=== PATIENT | female | born 1995 | race Caucasian/White ===

== ENCOUNTER 2017-11-24 10:24 | Emergency (ER) | payer MEDICAID ==
[~2017-11-24] VITALS: Ht 160 cm; Wt 90.7 kg
[~2017-11-24 10:24] MED LIST: ACHD5005 PO; AGM875T PO; BENZ100C8 PO; CIPR500T4 PO; DCS100C PO; FLC150T PO; FRS325T PO; HYDR-3454 PO; HYDR-3720 PO; HYDR-757 PO; IBP600T1 PO; METR500T PO; METR500T21 PO; NITR100C3 PO; ONDA4TAB11; ONDA8TAB13 PO; PREN-115 PO
--- OUTSIDE RECORDS SUMMARY | 2017-11-24 10:31 | XMS REPORT ---
Author JN Garcia [facility] eClinicalWorks Address Unknown Phone Unavailable Care Team Providers Care Compliance Clerk Name Role Phone JN ARCHER CP Unavailable Allergies No Known Allergies Problems Problem Type Condition Code Onset Dates Condition Status Problem Routine general medical examination at health care facility V70.0 Active Problem Allergy, unspecified not elsewhere classified 995.3 Active Problem examination or test, positive result V72.42 Active Problem Supervision of normal first V22.0 Active Problem Acute serous otitis media 381.01 Active Problem Cough 786.2 Active Problem Candidiasis of vulva and vagina 112.1 Active Problem Unspecified urticaria 708.9 Active Problem Nausea alone 787.02 Active Problem General counseling for initiation of other contraceptive measures V25.02 Active Problem Absence of menstruation 626.0 Active Problem Acute sinusitis, unspecified 461.9 Active Problem Routine follow-up V24.2 Active Problem Unspecified antepartum hemorrhage, unspecified as to episode of care 641.90 Active Problem Leukorrhea, not specified as infective 623.5 Active Problem Personal history of other allergy, other than to medicinal agents V15.09 Active Problem Unspecified acute conjunctivitis 372.00 Active Problem Pain in joint, lower leg 719.46 Active Problem Encounter for long-term (current) use of other medications V58.69 Active Problem Unspecified procreative management V26.9 Active Problem Unspecified examination V72.9 Active Assessment Encounter for test Z32.00 Active Problem Screening examination for venereal disease V74.5 Active Problem Mild hyperemesis gravidarum, antepartum 643.03 Active Medications No Known Medications Procedures Procedure Coding System Code Date URINE TEST CPT-4 41958 Nov 10, 2015 Results Name Result Date Reference Range Unit Abnormality Flag TEST, URINE (IN HOUSE) ----RESULTS neg [id number] ----Lot # [id number] ----Control + [id number] ----Exp date [id number] Summary Purpose eClinicalWorks Submission
--- OUTSIDE RECORDS SUMMARY | 2017-11-24 10:31 | XMS REPORT ---
Author KRISSY Flynn [facility] eClinicalWorks Address Unknown Phone Unavailable Care Team Providers Care Winding Machine Operator Name Role Phone KRISSY JANSEN CP Unavailable Allergies, Adverse Reactions, Alerts Substance Reaction Event Type N.K.D.A. Info Not Available Non Drug Allergy Problems Problem Type Condition Code Onset Dates [...] Active Problem Unspecified examination V72.9 Active Assessment Migraine G43.909 Active Problem Screening examination for venereal disease V74.5 Active Problem Mild hyperemesis gravidarum, antepartum 643.03 Active Medications Medication Code System Code Instructions Start Date End Date Status Dosage Propranolol HCl [facility] [address]-22 10 MG Orally Twice a day Nov 30, 2015 1 tablet Nexplanon [facility] [address]-16 68 MG Subcutaneous not defined Procedures Procedure Coding System Code Date COMPREHEN METABOLIC PANEL CPT-4 00735 Nov 30, 2015 COMPLETE CBC W/AUTO DIFF WBC CPT-4 92520 Nov 30, 2015 ASSAY THYROID STIM HORMONE CPT-4 97339 Nov 30, 2015 Office Visit, Est Pt., Level 4 CPT-4 69118 Nov 30, 2015 VENIPUNCT, ROUTINE* CPT-4 15696 Nov 30, 2015 Vital Signs Date/Time: Nov 30, 2015 Temperature 98.3 F Weight 206.5 lbs Height 62 in BMI 37.77 Index Blood Pressure Diastolic 82 mmHg Blood Pressure Systolic 134 mmHg Cardiac Monitoring Heart Rate 78 bpm Results Name Result Date Reference Range Unit Abnormality Flag ROUTINE VENIPUNCTURE Summary Purpose eClinicalWorks Submission
--- OUTSIDE RECORDS SUMMARY | 2017-11-24 10:31 | XMS REPORT ---
Author Author BRISEIDA MARLOW [facility] eClinicalWorks Address Unknown Phone Unavailable Care Team Providers Care Boilermaker'S Assistant Name Role Phone BRISEIDA MARLOW CP Unavailable Allergies, Adverse Reactions, Alerts Substance Reaction Event Type N.K.D.A. Info Not Available Non Drug Allergy Problems Problem Type Condition Code Onset Dates Condition Status Assessment Environmental allergies Z91.09 Active Problem Unspecified examination V72.9 Active Assessment Fibrocystic breast disease N60.19 Active Problem Mild hyperemesis gravidarum, antepartum 643.03 Active Assessment Headache R51 Active Problem Routine general medical examination at health care facility V70.0 Active Problem Allergy, unspecified not elsewhere classified 995.3 Active Problem examination or test, positive result V72.42 Active Problem Supervision of normal first V22.0 Active Problem Cough 786.2 Active Problem Acute serous otitis media 381.01 Active Problem Candidiasis of vulva and vagina 112.1 Active Problem Nausea alone 787.02 Active Problem Unspecified urticaria 708.9 Active Problem General counseling for initiation of [...] Problem Unspecified procreative management V26.9 Active Problem Screening examination for venereal disease V74.5 Active Medications Medication Code System Code Instructions Start Date End Date Status Dosage Zyrtec Allergy [facility] [address]-71 10 MG Orally Once a day Nov 16, 2015 as directed Fioricet [facility] [address]-66 50-300-40 MG Orally every 4 hrs Nov 16, 2015 1 capsule as needed Procedures Procedure Coding System Code Date Office Visit, Est Pt., Level 3 CPT-4 14359 Nov 16, 2015 Vital Signs Date/Time: Nov 16, 2015 Temperature 98.7 F Weight 201 lbs Height 62 in BMI 36.76 Index Blood Pressure Diastolic 70 mmHg Blood Pressure Systolic 120 mmHg Cardiac Monitoring Heart Rate 68 bpm Results No Known Results Summary Purpose eClinicalWorks Submission
--- OUTSIDE RECORDS SUMMARY | 2017-11-24 10:32 | XMS REPORT | Continuity of Care Document ---
Author Author Formerly [facility], 1928–1983 Ctr of [facility] of [facility] Address Unknown Phone Unavailable Allergies Active Description Code Type Severity Reaction Onset Reported/Identified Relationship to Patient Clinical Status Yes No Known Drug Allergies [id number] Drug Allergy Unknown N/A 05/09/2013 Medications There is no data. Problems Date Dx Coded Attending Type Code Diagnosis Diagnosed By 03/12/2009 ASMITA MERCADO MD V25.9 Gynecologic Services Contraceptive Management 03/12/2009 ASMITA MERCADO MD V72.31 Pelvic Exam (Internal) 03/12/2009 V25.9 Gynecologic Services Contraceptive Management 03/12/2009 V72.31 Pelvic Exam ( Internal) 03/12/2009 V25.9 Gynecologic Services Contraceptive Management 03/12/2009 V72.31 Pelvic Exam ( internal) 03/12/2009 V25.9 Gynecologic Services Contraceptive Management 03/12/2009 V72.31 Pelvic Exam ( internal) 03/12/2009 V25.9 Gynecologic Services Contraceptive Management 03/12/2009 V72.31 Pelvic Exam ( internal) 03/12/2009 V25.9 Gynecologic Services Contraceptive Management 03/12/2009 V72.31 Pelvic Exam ( internal) 03/12/2009 V25.9 Gynecologic Services Contraceptive Management 03/12/2009 V72.31 Pelvic Exam ( internal) 03/12/2009 V25.9 Gynecologic Services Contraceptive Management 03/12/2009 V72.31 Pelvic Exam ( internal) 03/12/2009 V25.9 Gynecologic Services Contraceptive Management 03/12/2009 V72.31 Pelvic Exam ( internal) 03/12/2009 ELLA MONGE APRN V25.9 Gynecologic Services Contraceptive Management 03/12/2009 ELLA MONGE APRN V72.31 Pelvic Exam (internal) 03/12/2009 KENRICK DESAI MD V25.9 Gynecologic Services Contraceptive Management 03/12/2009 KENRICK DESAI MD V72.31 Pelvic Exam (internal) 03/12/2009 JYOTI KNIFE EDGER, BRENDEN A V25.9 Gynecologic Services Contraceptive Management 03/12/2009 JYOTI KNIFE EDGER, BRENDEN A V72.31 Pelvic Exam (internal) 03/12/2009 JUSTYNA KNIFE EDGER, KRISSY L V25.9 Gynecologic Services Contraceptive Management 03/12/2009 JUSTYNA KNIFE EDGER, KRISSY L V72.31 Pelvic Exam (internal) 03/12/2009 BARRAGAN DO LEONEL K V25.9 Gynecologic Services Contraceptive Management 03/12/2009 BARRAGAN DO, LEONEL K V72.31 Pelvic Exam (internal) 03/12/2009 MARCIN KNIFE EDGER, MICHA R V25.9 Gynecologic Services Contraceptive Management 03/12/2009 MARCIN KNIFE EDGER, MICHA R V72.31 Pelvic Exam (internal) 03/12/2009 BARRAGAN DO LEONEL K V25.9 Gynecologic Services Contraceptive Management 03/12/2009 BARRAGAN DO, LEONEL K V72.31 Pelvic Exam (internal) 05/28/2009 ASMITA MERCADO MD V05.8 GARDASIL, SHINGLES, OTHER SPECIFIED DISEASE 05/28/2009 ASMITA MERCADO MD V25.49 SURVEILLANCE OF OTHER CONTRACEPTIVE METHOD 05/28/2009 V05.8 GARDASIL, SHINGLES, OTHER SPECIFIED DISEASE 05/28/2009 V25.49 SURVEILLANCE OF OTHER CONTRACEPTIVE METHOD 05/28/2009 V05.8 Gardasil, Shingles, Other Specified Disease 05/28/2009 V25.49 Surveillance Of Other Contraceptive Method 05/28/2009 V05.8 Gardasil, Shingles, Other Specified Disease 05/28/2009 V25.49 Surveillance Of Other Contraceptive Method 05/28/2009 V05.8 Gardasil, Shingles, Other Specified Disease 05/28/2009 V25.49 Surveillance Of Other Contraceptive Method 05/28/2009 V05.8 Gardasil, Shingles, Other Specified Disease 05/28/2009 V25.49 Surveillance Of Other Contraceptive Method 05/28/2009 V05.8 Gardasil, Shingles, Other Specified Disease 05/28/2009 V25.49 Surveillance Of Other Contraceptive Method 05/28/2009 V05.8 Gardasil, Shingles, Other Specified Disease 05/28/2009 V25.49 Surveillance Of Other Contraceptive Method 05/28/2009 V05.8 Gardasil, Shingles, Other Specified Disease 05/28/2009 V25.49 Surveillance Of Other Contraceptive Method 05/28/2009 MARIPOSA KNIFE EDGERKERENA S V05.8 Gardasil, Shingles, Other Specified Disease 05/28/2009 KEREN MONGE APRNA S V25.49 Surveillance Of Other Contraceptive Method 05/28/2009 KENRICK DESAI MD V05.8 Gardasil, Shingles, Other Specified Disease 05/28/2009 KENRICK DESAI MD V25.49 Surveillance Of Other Contraceptive Method 05/28/2009 JYOTI KNIFE EDGER, BRENDEN A V05.8 Gardasil, Shingles, Other Specified Disease 05/28/2009 JYOTI KNIFE EDGERIVANBRENDEN A V25.49 Surveillance Of Other Contraceptive Method 05/28/2009 MADL KNIFE EDGER KRISSY L V05.8 Gardasil, Shingles, Other Specified Disease 05/28/2009 MADL KNIFE EDGER, KRISSY L V25.49 Surveillance Of Other Contraceptive Method 05/28/2009 LAUREL DO LEONEL K V05.8 Gardasil, Shingles, Other Specified Disease 05/28/2009 BARRAGAN DO LEONEL K V25.49 Surveillance Of Other Contraceptive Method 05/28/2009 MARCIN KNIFE EDGER, MICHA R V05.8 Gardasil, Shingles, Other Specified Disease 05/28/2009 MARCIN MENDEZ MICHA R V25.49 Surveillance Of Other Contraceptive Method 05/28/2009 BARRAGAN DO LEONEL K V05.8 Gardasil, Shingles, Other Specified Disease 05/28/2009 LAUREL SOMERS LEONEL K V25.49 Surveillance Of Other Contraceptive Method 11/17/2009 ASMITA MERCADO MD V05.3 HEPATITIS VIRAL/ALL 11/17/2009 ASMITA MERCADO MD V05.4 VARICELLA, CHICKENPOX 11/17/2009 ASMITA MERCADO MD V06.5 DT, TETANUS-DIPHTHERIA [Td] ,TDAP 11/17/2009 V05.3 HEPATITIS VIRAL/ALL 11/17/2009 V05.4 VARICELLA, CHICKENPOX 11/17/2009 V06.5 DT, TETANUS- DIPHTHERIA [Td] ,TDAP 11/17/2009 V05.3 Hepatitis Viral/all 11/17/2009 V05.4 Varicella, Chickenpox 11/17/2009 V06.5 Dt, Tetanus- diphtheria [td] ,tdap 11/17/2009 V05.3 Hepatitis Viral/all 11/17/2009 V05.4 Varicella, Chickenpox 11/17/2009 V06.5 Dt, Tetanus- diphtheria [td] ,tdap 11/17/2009 V05.3 Hepatitis Viral/all 11/17/2009 V05.4 Varicella, Chickenpox 11/17/2009 V06.5 Dt, Tetanus- diphtheria [td] ,tdap 11/17/2009 V05.3 Hepatitis Viral/all 11/17/2009 V05.4 Varicella, Chickenpox 11/17/2009 V06.5 Dt, Tetanus- diphtheria [td] ,tdap 11/17/2009 V05.3 Hepatitis Viral/all 11/17/2009 V05.4 Varicella, Chickenpox 11/17/2009 V06.5 Dt, Tetanus- diphtheria [td] ,tdap 11/17/2009 V05.3 Hepatitis Viral/all 11/17/2009 V05.4 Varicella, Chickenpox 11/17/2009 V06.5 Dt, Tetanus- diphtheria [td] ,tdap 11/17/2009 V05.3 Hepatitis Viral/all 11/17/2009 V05.4 Varicella, Chickenpox 11/17/2009 V06.5 Dt, Tetanus- diphtheria [td] ,tdap 11/17/2009 MARIPOSA KNIFE EDGER, ELLA S V05.3 Hepatitis Viral/all 11/17/2009 MARIPOSA KNIFE EDGER, ELLA S V05.4 Varicella, Chickenpox 11/17/2009 MARIPOSA KNIFE EDGER, ELLA S V06.5 Dt, Tetanus-diphtheria [td] ,tdap 11/17/2009 GISELLE RICH, KENRICK Michel V05.3 Hepatitis Viral/all 11/17/2009 GISELLE RICH, KENRICK Michel V05.4 Varicella, Chickenpox 11/17/2009 GISELLE RICH, KENRICK Michel V06.5 Dt, Tetanus-diphtheria [td] ,tdap 11/17/2009 JYOTI KNIFE EDGER, BRENDEN A V05.3 Hepatitis Viral/all 11/17/2009 JYOTI KNIFE EDGER, BRENDEN A V05.4 Varicella, Chickenpox 11/17/2009 JYOTI KNIFE EDGER, BRENDEN A V06.5 Dt, Tetanus-diphtheria [td] ,tdap 11/17/2009 MADL KNIFE EDGER, KRISSY L V05.3 Hepatitis Viral/all 11/17/2009 MADL KNIFE EDGER, KRISSY L V05.4 Varicella, Chickenpox 11/17/2009 MADL KNIFE EDGER, KRISSY L V06.5 Dt, Tetanus-diphtheria [td] ,tdap 11/17/2009 BARRAGAN DO, LEONEL K V05.3 Hepatitis Viral/all 11/17/2009 BARRAGAN DO, LEONEL K V05.4 Varicella, Chickenpox 11/17/2009 BARRAGAN DO, LEONEL K V06.5 Dt, Tetanus-diphtheria [td] ,tdap 11/17/2009 MARCIN KNIFE EDGER, MICHA R V05.3 Hepatitis Viral/all 11/17/2009 MARCIN KNIFE EDGER, MICHA R V05.4 Varicella, Chickenpox 11/17/2009 MARCIN KNIFE EDGER, MICHA R V06.5 Dt, Tetanus-diphtheria [td] ,tdap 11/17/2009 BARRAGAN DO, LEONEL K V05.3 Hepatitis Viral/all 11/17/2009 BARRAGAN DO, LEONEL K V05.4 Varicella, Chickenpox 11/17/2009 BARRAGAN DO, LEONEL K V06.5 Dt, Tetanus-diphtheria [td] ,tdap 01/13/2010 JESS RICH, ASMITA 698.1 PRURITUS VULVAE 01/13/2010 698.1 PRURITUS VULVAE 01/13/2010 698.1 Pruritus Vulvae 01/13/2010 698.1 Pruritus Vulvae 01/13/2010 698.1 Pruritus Vulvae 01/13/2010 698.1 Pruritus Vulvae 01/13/2010 698.1 Pruritus Vulvae 01/13/2010 698.1 Pruritus Vulvae 01/13/2010 698.1 Pruritus Vulvae 01/13/2010 MARIPOSA MENDEZ, ELLA Crawford 698.1 Pruritus Vulvae 01/13/2010 GISELLE RICH, KENRICK Michel 698.1 Pruritus Vulvae 01/13/2010 JYOTIBRENDEN SIFUENTES APRN A 698.1 Pruritus Vulvae 01/13/2010 KRISSY JANSEN APRN 698.1 Pruritus Vulvae 01/13/2010 LEONEL BARRAGAN DO 698.1 Pruritus Vulvae 01/13/2010 MICHA BURCH APRN 698.1 Pruritus Vulvae 01/13/2010 LEONEL BARRAGAN DO 698.1 Pruritus Vulvae 02/23/2010 ASMITA MERCADO MD 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 02/23/2010 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 02/23/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/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/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/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/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/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/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/2010 ELLA MONGE APRN 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/2010 KENRICK DESAI MD 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/2010 BRENDEN MONTES APRN A 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/2010 KRISSY JANSEN APRN 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/2010 LEONEL BARRAGAN DO 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/2010 MICHA BURCH APRN R 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/2010 LEONEL BARRAGAN DO 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 02/17/2011 ASMITA MERCADO MD V20.2 WELL CHILD 02/17/2011 V20.2 WELL CHILD 02/17/2011 V20.2 WELL CHILD 02/17/2011 V20.2 WELL CHILD 02/17/2011 V20.2 WELL CHILD 02/17/2011 V20.2 WELL CHILD 02/17/2011 V20.2 WELL CHILD 02/17/2011 V20.2 WELL CHILD 02/17/2011 V20.2 WELL CHILD 02/17/2011 ELLA MONGE APRN V20.2 WELL CHILD 02/17/2011 KENRICK DESAI MD V20.2 WELL CHILD 02/17/2011 JYOTI APRNBRENDEN A V20.2 WELL CHILD 02/17/2011 JUSTYNA VANESSAKRISSY L V20.2 WELL CHILD 02/17/2011 LEONEL BARRAGAN DO K V20.2 WELL CHILD 02/17/2011 MARCIN MENDEZMICHA R V20.2 WELL CHILD 02/17/2011 LEONEL BARRAGAN DO K V20.2 WELL CHILD 03/16/2011 ASMITA MERCADO MD 625.3 severe menstrual pain (dysmenorrhea) 03/16/2011 ASMITA MERCADO MD V25.02 Gynecologic Services Prescription Of Contraceptive Agents 03/16/2011 625.3 severe menstrual pain (dysmenorrhea) 03/16/2011 V25.02 Gynecologic Services Prescription Of Contraceptive Agents 03/16/2011 625.3 severe menstrual pain (dysmenorrhea) 03/16/2011 V25.02 Gynecologic Services Prescription Of Contraceptive Agents 03/16/2011 625.3 severe menstrual pain (dysmenorrhea) 03/16/2011 V25.02 Gynecologic Services Prescription Of Contraceptive Agents 03/16/2011 625.3 severe menstrual pain (dysmenorrhea) 03/16/2011 V25.02 Gynecologic Services Prescription Of Contraceptive Agents 03/16/2011 625.3 SEVERE MENSTRUAL PAIN (DYSMENORRHEA) 03/16/2011 V25.02 Gynecologic Services Prescription Of Contraceptive Agents 03/16/2011 625.3 SEVERE MENSTRUAL PAIN (DYSMENORRHEA) 03/16/2011 V25.02 Gynecologic Services Prescription Of Contraceptive Agents 03/16/2011 625.3 SEVERE MENSTRUAL PAIN (DYSMENORRHEA) 03/16/2011 V25.02 Gynecologic Services Prescription Of Contraceptive Agents 03/16/2011 625.3 SEVERE MENSTRUAL PAIN (DYSMENORRHEA) 03/16/2011 V25.02 Gynecologic Services Prescription Of Contraceptive Agents 03/16/2011 ELLA MONGE APRN 625.3 SEVERE MENSTRUAL PAIN (DYSMENORRHEA) 03/16/2011 ELLA MONGE APRN V25.02 Gynecologic Services Prescription Of Contraceptive Agents 03/16/2011 KENRICK DESAI MD 625.3 SEVERE MENSTRUAL PAIN (DYSMENORRHEA) 03/16/2011 KENRICK DESAI MD V25.02 Gynecologic Services Prescription Of Contraceptive Agents 03/16/2011 JYOTIBRENDEN Michel APRN A 625.3 SEVERE MENSTRUAL PAIN (DYSMENORRHEA) 03/16/2011 JYOTIBRENDEN Michel APRN A V25.02 Gynecologic Services Prescription Of Contraceptive Agents 03/16/2011 JUSTYNA KRISSY MENDEZ L 625.3 SEVERE MENSTRUAL PAIN (DYSMENORRHEA) 03/16/2011 PEDROLillian KRISSY MENDEZ L V25.02 Gynecologic Services Prescription Of Contraceptive Agents 03/16/2011 JANEY BARRAGAN DOA K 625.3 SEVERE MENSTRUAL PAIN (DYSMENORRHEA) 03/16/2011 JANEY BARRAGAN DOA K V25.02 Gynecologic Services Prescription Of Contraceptive Agents 03/16/2011 VALENCIA BURCH APRNINA R 625.3 SEVERE MENSTRUAL PAIN (DYSMENORRHEA) 03/16/2011 VALENCIA BURCH APRNINA R V25.02 Gynecologic Services Prescription Of Contraceptive Agents 03/16/2011 JANEY BARRAGAN DOA K 625.3 SEVERE MENSTRUAL PAIN (DYSMENORRHEA) 03/16/2011 JANEY BARRAGAN DOA K V25.02 Gynecologic Services Prescription Of Contraceptive Agents 06/05/2011 ASMITA MERCADO MD 477.0 ALLERGIC RHINITIS - POLLEN 06/05/2011 477.0 ALLERGIC RHINITIS - POLLEN 06/05/2011 477.0 ALLERGIC RHINITIS - POLLEN 06/05/2011 477.0 ALLERGIC RHINITIS - POLLEN 06/05/2011 477.0 ALLERGIC RHINITIS - POLLEN 06/05/2011 477.0 ALLERGIC RHINITIS - POLLEN 06/05/2011 477.0 ALLERGIC RHINITIS - POLLEN 06/05/2011 477.0 ALLERGIC RHINITIS - POLLEN 06/05/2011 477.0 ALLERGIC RHINITIS - POLLEN 06/05/2011 ELLA MONGE APRN 477.0 ALLERGIC RHINITIS - POLLEN 06/05/2011 KENRICK DESAI MD 477.0 ALLERGIC RHINITIS - POLLEN 06/05/2011 BRENDEN MONTES APRN A 477.0 ALLERGIC RHINITIS - POLLEN 06/05/2011 KRISSY JANSEN APRN 477.0 ALLERGIC RHINITIS - POLLEN 06/05/2011 JANEY BARRAGAN DOA K 477.0 ALLERGIC RHINITIS - POLLEN 06/05/2011 VALENCIA BURCH APRNINA R 477.0 ALLERGIC RHINITIS - POLLEN 06/05/2011 BARRAGAN LEONEL SOMERS K 477.0 ALLERGIC RHINITIS - POLLEN 06/17/2012 ASMITA MERCADO MD 626.0 ABSENCE OF MENSTRUATION 06/17/2012 626.0 ABSENCE OF MENSTRUATION 06/17/2012 626.0 Absence Of Menstruation 06/17/2012 626.0 Absence Of Menstruation 06/17/2012 626.0 Absence Of Menstruation 06/17/2012 626.0 Absence Of Menstruation 06/17/2012 626.0 Absence Of Menstruation 06/17/2012 626.0 Absence Of Menstruation 06/17/2012 626.0 Absence Of Menstruation 06/17/2012 ELLA MONGE APRN S 626.0 Absence Of Menstruation 06/17/2012 KENRICK DESAI MD 626.0 Absence Of Menstruation 06/17/2012 BRENDEN MONTES APRN A 626.0 Absence Of Menstruation 06/17/2012 KRISSY JANSEN APRN L 626.0 Absence Of Menstruation 06/17/2012 BARRAGAN DOLEONEL K 626.0 Absence Of Menstruation 06/17/2012 MICHA BURCH APRN R 626.0 Absence Of Menstruation 06/17/2012 BARRAGAN DO, LEONEL K 626.0 Absence Of Menstruation 07/18/2012 ASMITA MERCADO MD 995.3 ALLERGY UNSPECIFIED NOT ELSEWHERE CLASSIFIED 07/18/2012 995.3 ALLERGY UNSPECIFIED NOT ELSEWHERE CLASSIFIED 07/18/2012 995.3 Allergy Unspecified Not Elsewhere Classified 07/18/2012 995.3 Allergy Unspecified Not Elsewhere Classified 07/18/2012 995.3 Allergy Unspecified Not Elsewhere Classified 07/18/2012 995.3 Allergy Unspecified Not Elsewhere Classified 07/18/2012 995.3 Allergy Unspecified Not Elsewhere Classified 07/18/2012 995.3 Allergy Unspecified Not Elsewhere Classified 07/18/2012 995.3 Allergy Unspecified Not Elsewhere Classified 07/18/2012 ELLA MONGE APRN S 995.3 Allergy Unspecified Not Elsewhere Classified 07/18/2012 KENRICK DESAI MD 995.3 Allergy Unspecified Not Elsewhere Classified 07/18/2012 BRENDEN MONTES APRN A 995.3 Allergy Unspecified Not Elsewhere Classified 07/18/2012 SHAYAN JANSEN APRNA L 995.3 Allergy Unspecified Not Elsewhere Classified 07/18/2012 BARRAGAN LEONEL SOMERS 995.3 Allergy Unspecified Not Elsewhere Classified 07/18/2012 MICHA BURCH APRN 995.3 Allergy Unspecified Not Elsewhere Classified 07/18/2012 BARRAGAN LEONEL SOMERS 995.3 Allergy Unspecified Not Elsewhere Classified 08/07/2012 ASMITA MERCADO MD 372.00 ACUTE CONJUNCTIVITIS UNSPECIFIED 08/07/2012 ASMITA MERCADO MD 381.01 ACUTE SEROUS OTITIS MEDIA 08/07/2012 ASMITA MERCADO MD V15.09 PERSONAL HISTORY OF OTHER ALLERGY OTHER THAN TO MEDICINAL AGENTS 08/07/2012 372.00 ACUTE CONJUNCTIVITIS UNSPECIFIED 08/07/2012 381.01 ACUTE SEROUS OTITIS MEDIA 08/07/2012 V15.09 PERSONAL HISTORY OF OTHER ALLERGY OTHER THAN TO MEDICINAL AGENTS 08/07/2012 372.00 Acute Conjunctivitis Unspecified 08/07/2012 381.01 Acute Serous Otitis Media 08/07/2012 V15.09 Personal History Of Other Allergy Other Than To Medicinal Agents 08/07/2012 372.00 Acute Conjunctivitis Unspecified 08/07/2012 381.01 Acute Serous Otitis Media 08/07/2012 V15.09 Personal History Of Other Allergy Other Than To Medicinal Agents 08/07/2012 372.00 Acute Conjunctivitis Unspecified 08/07/2012 381.01 Acute Serous Otitis Media 08/07/2012 V15.09 Personal History Of Other Allergy Other Than To Medicinal Agents 08/07/2012 372.00 Acute Conjunctivitis Unspecified 08/07/2012 381.01 Acute Serous Otitis Media 08/07/2012 V15.09 Personal History Of Other Allergy Other Than To Medicinal Agents 08/07/2012 372.00 Acute Conjunctivitis Unspecified 08/07/2012 381.01 Acute Serous Otitis Media 08/07/2012 V15.09 Personal History Of Other Allergy Other Than To Medicinal Agents 08/07/2012 372.00 Acute Conjunctivitis Unspecified 08/07/2012 381.01 Acute Serous Otitis Media 08/07/2012 V15.09 Personal History Of Other Allergy Other Than To Medicinal Agents 08/07/2012 372.00 Acute Conjunctivitis Unspecified 08/07/2012 381.01 Acute Serous Otitis Media 08/07/2012 V15.09 Personal History Of Other Allergy Other Than To Medicinal Agents 08/07/2012 MARIPOSA KNIFE EDGER, ELLA S 372.00 Acute Conjunctivitis Unspecified 08/07/2012 MARIPOSA KNIFE EDGER, ELLA S 381.01 Acute Serous Otitis Media 08/07/2012 MARIPOSA MENDEZ, ELLA S V15.09 Personal History Of Other Allergy Other Than To Medicinal Agents 08/07/2012 KENRICK DESAI MD N 372.00 Acute Conjunctivitis Unspecified 08/07/2012 KENRICK DESAI MD N 381.01 Acute Serous Otitis Media 08/07/2012 KENRICK DESAI MD N V15.09 Personal History Of Other Allergy Other Than To Medicinal Agents 08/07/2012 JYOTI KNIFE EDGER, BRENDEN A 372.00 Acute Conjunctivitis Unspecified 08/07/2012 JYOTI KNIFE EDGER, BRENDEN A 381.01 Acute Serous Otitis Media 08/07/2012 JYOTI KNIFE EDGER, BRENDEN A V15.09 Personal History Of Other Allergy Other Than To Medicinal Agents 08/07/2012 MADL KNIFE EDGER, KRISSY L 372.00 Acute Conjunctivitis Unspecified 08/07/2012 MADL KNIFE EDGER, KRISSY L 381.01 Acute Serous Otitis Media 08/07/2012 MADL KNIFE EDGER, KRISSY L V15.09 Personal History Of Other Allergy Other Than To Medicinal Agents 08/07/2012 BARRAGAN DO, LEONEL K 372.00 Acute Conjunctivitis Unspecified 08/07/2012 BARRAGAN DO, LEONEL K 381.01 Acute Serous Otitis Media 08/07/2012 BARRAGAN DO, LEONEL K V15.09 Personal History Of Other Allergy Other Than To Medicinal Agents 08/07/2012 MARCIN KNIFE EDGER, MICHA R 372.00 Acute Conjunctivitis Unspecified 08/07/2012 MARCIN KNIFE EDGER, MICHA R 381.01 Acute Serous Otitis Media 08/07/2012 MARCIN KNIFE EDGER, MICHA R V15.09 Personal History Of Other Allergy Other Than To Medicinal Agents 08/07/2012 BARRAGAN DO, LEONEL K 372.00 Acute Conjunctivitis Unspecified 08/07/2012 BARRAGAN DO, LEONEL K 381.01 Acute Serous Otitis Media 08/07/2012 BARRAGAN DO LEONEL K V15.09 Personal History Of Other Allergy Other Than To Medicinal Agents 11/14/2012 ASMITA MERCADO MD 461.9 SINUSITIS ACUTE 11/14/2012 ASMITA MERCADO MD 786.2 COUGH 11/14/2012 461.9 SINUSITIS ACUTE 11/14/2012 786.2 COUGH 11/14/2012 461.9 Sinusitis Acute 11/14/2012 786.2 Cough 11/14/2012 461.9 Sinusitis Acute 11/14/2012 786.2 Cough 11/14/2012 461.9 Sinusitis Acute 11/14/2012 786.2 Cough 11/14/2012 461.9 Sinusitis Acute 11/14/2012 786.2 Cough 11/14/2012 461.9 Sinusitis Acute 11/14/2012 786.2 Cough 11/14/2012 461.9 Sinusitis Acute 11/14/2012 786.2 Cough 11/14/2012 461.9 Sinusitis Acute 11/14/2012 786.2 Cough 11/14/2012 ELLA MONGE APRN S 461.9 Sinusitis Acute 11/14/2012 MARIPOSA MENDEZ ELLA S 786.2 Cough 11/14/2012 KENRICK DESAI MD 461.9 Sinusitis Acute 11/14/2012 KENRICK DESAI MD N 786.2 Cough 11/14/2012 JYOTI KNIFE EDGER, BRENDEN A 461.9 Sinusitis Acute 11/14/2012 JYOTI APRN, BRENDEN A 786.2 Cough 11/14/2012 MADL VANESSA, KRISSY L 461.9 Sinusitis Acute 11/14/2012 MADL KNIFE EDGER, KRISSY L 786.2 Cough 11/14/2012 JANEY BARRAGAN DOA K 461.9 Sinusitis Acute 11/14/2012 JANEY BARRAGAN DOA K 786.2 Cough 11/14/2012 MARCIN VANESSA, MICHA R 461.9 Sinusitis Acute 11/14/2012 MARCIN KNIFE EDGER, MICHA R 786.2 Cough 11/14/2012 BARRAGAN DO LEONEL K 461.9 Sinusitis Acute 11/14/2012 BARRAGAN DO LEONEL K 786.2 Cough 01/27/2013 719.46 joint pain in both knees 01/27/2013 719.46 joint pain in both knees 01/27/2013 719.46 joint pain in both knees 01/27/2013 719.46 joint pain in both knees 01/27/2013 719.46 joint pain in both knees 01/27/2013 719.46 joint pain in both knees 01/27/2013 719.46 joint pain in both knees 01/27/2013 719.46 joint pain in both knees 01/27/2013 ELLA MONGE APRN 719.46 joint pain in both knees 01/27/2013 KENRICK DESAI MD 719.46 joint pain in both knees 01/27/2013 BRENDEN MONTES APRN A 719.46 joint pain in both knees 01/27/2013 KRISSY JANSEN APRN L 719.46 joint pain in both knees 01/27/2013 BARRAGAN DO, LEONEL K 719.46 joint pain in both knees 01/27/2013 MICHA BURCH APRN R 719.46 joint pain in both knees 01/27/2013 BARRAGAN DO, LEONEL K 719.46 joint pain in both knees 02/11/2013 787.02 NAUSEA ALONE 02/11/2013 V22.0 , NORMAL FIRST 02/11/2013 787.02 Nausea Alone 02/11/2013 V22.0 , NORMAL FIRST 02/11/2013 787.02 Nausea Alone 02/11/2013 V22.0 , NORMAL FIRST 02/11/2013 787.02 Nausea Alone 02/11/2013 V22.0 , NORMAL FIRST 02/11/2013 787.02 Nausea Alone 02/11/2013 V22.0 , NORMAL FIRST 02/11/2013 787.02 Nausea Alone 02/11/2013 V22.0 , NORMAL FIRST 02/11/2013 787.02 Nausea Alone 02/11/2013 V22.0 , NORMAL FIRST 02/11/2013 787.02 Nausea Alone 02/11/2013 V22.0 , NORMAL FIRST 02/11/2013 ELLA MONGE APRN S 787.02 Nausea Alone 02/11/2013 ELLA MONGE APRN V22.0 , NORMAL FIRST 02/11/2013 KENRICK DESAI MD N 787.02 Nausea Alone 02/11/2013 KENRICK DESAI MD V22.0 , NORMAL FIRST 02/11/2013 BRENDEN MONTES APRN A 787.02 Nausea Alone 02/11/2013 JYOTI KNIFE EDGER, BRENDEN A V22.0 , NORMAL FIRST 02/11/2013 MADL KNIFE EDGER, KRISSY L 787.02 Nausea Alone 02/11/2013 MADL KNIFE EDGER, KRISSY L V22.0 , NORMAL FIRST 02/11/2013 BARRAGAN DO, LEONEL K 787.02 Nausea Alone 02/11/2013 BARRAGAN DO, LEONEL K V22.0 , NORMAL FIRST 02/11/2013 MARCIN KNIFE EDGER, MICHA R 787.02 Nausea Alone 02/11/2013 MARCIN KNIFE EDGER, MICHA R V22.0 , NORMAL FIRST 02/11/2013 BARRAGAN DO, LEONEL K 787.02 Nausea Alone 02/11/2013 BARRAGAN DO, LEONEL K V22.0 , NORMAL FIRST 02/22/2013 643.03 COMPL OF PREGNACY - HYPEREMESIS <23 WK 02/22/2013 V70.0 ROUTINE GENERAL MEDICAL EXAMINATION AT A HEALTH CARE FACILITY 02/22/2013 643.03 COMPL OF PREGNACY - HYPEREMESIS <23 WK 02/22/2013 V70.0 ROUTINE GENERAL MEDICAL EXAMINATION AT A HEALTH CARE FACILITY 02/22/2013 643.03 COMPL OF PREGNACY - HYPEREMESIS <23 WK 02/22/2013 V70.0 ROUTINE GENERAL MEDICAL EXAMINATION AT A HEALTH CARE FACILITY 02/22/2013 643.03 COMPL OF PREGNACY - HYPEREMESIS <23 WK 02/22/2013 V70.0 ROUTINE GENERAL MEDICAL EXAMINATION AT A HEALTH CARE FACILITY 02/22/2013 643.03 COMPL OF PREGNACY - HYPEREMESIS <23 WK 02/22/2013 V70.0 ROUTINE GENERAL MEDICAL EXAMINATION AT A HEALTH CARE FACILITY 02/22/2013 643.03 COMPL OF PREGNACY - HYPEREMESIS <23 WK 02/22/2013 V70.0 ROUTINE GENERAL MEDICAL EXAMINATION AT A HEALTH CARE FACILITY 02/22/2013 643.03 COMPL OF PREGNACY - HYPEREMESIS <23 WK 02/22/2013 V70.0 ROUTINE GENERAL MEDICAL EXAMINATION AT A HEALTH CARE FACILITY 02/22/2013 ELLA MONGE APRN 643.03 COMPL OF PREGNACY - HYPEREMESIS <23 WK 02/22/2013 ELLA MONGE APRN V70.0 ROUTINE GENERAL MEDICAL EXAMINATION AT A HEALTH CARE FACILITY 02/22/2013 KENRICK DESAI MD 643.03 COMPL OF PREGNACY - HYPEREMESIS <23 WK 02/22/2013 KENRICK DESAI MD N V70.0 ROUTINE GENERAL MEDICAL EXAMINATION AT A HEALTH CARE FACILITY 02/22/2013 BRENDEN MONTES APRN A 643.03 COMPL OF PREGNACY - HYPEREMESIS <23 WK 02/22/2013 BRENDEN MONTES APRN A V70.0 ROUTINE GENERAL MEDICAL EXAMINATION AT A HEALTH CARE FACILITY 02/22/2013 KRISSY JANSEN APRN L 643.03 COMPL OF PREGNACY - HYPEREMESIS <23 WK 02/22/2013 SHAYAN JANSEN APRNA L V70.0 ROUTINE GENERAL MEDICAL EXAMINATION AT A HEALTH CARE FACILITY 02/22/2013 BARRAGAN DO LEONEL K 643.03 COMPL OF PREGNACY - HYPEREMESIS <23 WK 02/22/2013 BARRAGAN DO LEONEL K V70.0 ROUTINE GENERAL MEDICAL EXAMINATION AT A HEALTH CARE FACILITY 02/22/2013 MARCIN MENDEZ MICHA R 643.03 COMPL OF PREGNACY - HYPEREMESIS <23 WK 02/22/2013 MARCIN MENDEZ MICHA R V70.0 ROUTINE GENERAL MEDICAL EXAMINATION AT A HEALTH CARE FACILITY 02/22/2013 BARRAGAN DO LEONEL K 643.03 COMPL OF PREGNACY - HYPEREMESIS <23 WK 02/22/2013 BARRAGAN DO LEONEL K V70.0 ROUTINE GENERAL MEDICAL EXAMINATION AT A HEALTH CARE FACILITY 05/07/2013 623.5 LEUKORRHEA NOT SPECIFIED INFECTIVE 05/07/2013 641.90 COMPL OF - BLEEDING 05/07/2013 623.5 LEUKORRHEA NOT SPECIFIED INFECTIVE 05/07/2013 641.90 COMPL OF - BLEEDING 05/07/2013 ELLA MONGE APRN 623.5 LEUKORRHEA NOT SPECIFIED INFECTIVE 05/07/2013 ELLA MONGE APRN 641.90 COMPL OF - BLEEDING 05/07/2013 KENRICK DESAI MD 623.5 LEUKORRHEA NOT SPECIFIED INFECTIVE 05/07/2013 KENRICK DESAI MD N 641.90 COMPL OF - BLEEDING 05/07/2013 BRENDEN MONTES APRN A 623.5 LEUKORRHEA NOT SPECIFIED INFECTIVE 05/07/2013 BRENDEN MONTES APRN 641.90 COMPL OF - BLEEDING 05/07/2013 JUSTYNA GILLISNYANAKRISSY L 623.5 LEUKORRHEA NOT SPECIFIED INFECTIVE 05/07/2013 JUSTYNA GILLISN, KRISSY L 641.90 COMPL OF - BLEEDING 05/07/2013 BARRAGAN DO, LEONEL K 623.5 LEUKORRHEA NOT SPECIFIED INFECTIVE 05/07/2013 BARRAGAN DO, LEONEL K 641.90 COMPL OF - BLEEDING 05/07/2013 MARCIN KNIFE EDGER, MICHA R 623.5 LEUKORRHEA NOT SPECIFIED INFECTIVE 05/07/2013 MARCIN KNIFE EDGER, MICHA R 641.90 COMPL OF - BLEEDING 05/07/2013 BARRAGAN DO LEONEL K 623.5 LEUKORRHEA NOT SPECIFIED INFECTIVE 05/07/2013 BARRAGAN DO LEONEL K 641.90 COMPL OF - BLEEDING 05/09/2013 MELISSA MARIE MD Ot 623.8 05/09/2013 MELISSA MARIE MD Ot 654.73 06/23/2013 MIRANDA GUAJARDO DO Ot 599.0 06/23/2013 GUAJARDO MIRANDA SOMERS Ot 625.9 06/23/2013 GUAJARDO MIRANDA SOMERS Ot 646.63 08/16/2013 MIRANDA GUAJARDO DO Ot 644.03 09/24/2013 FENECH DO, STEFANO S Ot 644.13 09/24/2013 FENECH DO, STEFANO S Ot V04.81 09/29/2013 FENECH DO, STEFANO S Ot 623.5 09/29/2013 FENECH DO, STEFANO S Ot 644.13 09/29/2013 FENECH DO, STEFANO S Ot 654.73 10/12/2013 FENECH DO, STEFANO S Ot 285.1 10/12/2013 FENECH DO, STEFANO S Ot 427.89 10/12/2013 FENECH DO, STEFANO S Ot 648.22 10/12/2013 FENECH DO, STEFANO S Ot 648.62 10/12/2013 FENECH DO, STEFANO S Ot 653.41 10/12/2013 FENECH DO, STEFANO S Ot V06.1 10/12/2013 FENECH DO, STEFANO S Ot V06.4 10/12/2013 FENECH DO, STEFANO S Ot V27.0 10/25/2013 MARIPOSA KNIFE EDGER, ELLA S V72.9 EXAMINATION, UNSPEC 10/25/2013 GISELLE RICH, KENRICK Michel V72.9 EXAMINATION, UNSPEC 10/25/2013 BRENDEN MONTES APRN A V72.9 EXAMINATION, UNSPEC 10/25/2013 KRISSY JANSEN APRN V72.9 EXAMINATION, UNSPEC 10/25/2013 BARRAGAN , LEONEL K V72.9 EXAMINATION, UNSPEC 10/25/2013 VALENCIA BURCH APRNINA R V72.9 EXAMINATION, UNSPEC 10/25/2013 BARRAGAN , LEONEL K V72.9 EXAMINATION, UNSPEC 11/28/2013 GISELLE RICH, KENRICK N V58.69 MEDICATION HIGH RISK 11/28/2013 BRENDEN MONTES APRN A V58.69 MEDICATION HIGH RISK 11/28/2013 KRISSY JANSEN APRN V58.69 MEDICATION HIGH RISK 11/28/2013 JANEY BARRAGAN DOA K V58.69 MEDICATION HIGH RISK 11/28/2013 VALENCIA BURCH APRNINA R V58.69 MEDICATION HIGH RISK 11/28/2013 JANEY BARRAGAN DOA K V58.69 MEDICATION HIGH RISK 12/17/2013 BRENDEN MONTES APRN A V24.2 F/U, ROUTINE 12/17/2013 BRENDEN MONTES APRN A V25.02 CONTRACEPTION - ANY METHOD 12/17/2013 KRISSY JANSEN APRN V24.2 F/U, ROUTINE 12/17/2013 KRISSY JANSEN APRN V25.02 CONTRACEPTION - ANY METHOD 12/17/2013 JANEY BARRAGAN DOA K V24.2 F/U, ROUTINE 12/17/2013 LAUREL SOMERS LEONEL K V25.02 CONTRACEPTION - ANY METHOD 12/17/2013 VALENCIA BURCH APRNINA R V24.2 F/U, ROUTINE 12/17/2013 VALENCIA BURCH APRNINA R V25.02 CONTRACEPTION - ANY METHOD 12/17/2013 LAUREL SOMERS LEONEL K V24.2 F/U, ROUTINE 12/17/2013 LAUREL SOMERS LEONEL K V25.02 CONTRACEPTION - ANY METHOD 04/09/2014 KRISSY JANSEN APRN 112.1 CANDIDIASIS OF VULVA AND VAGINA 04/09/2014 MADL KNIFE EDGER, KRISSY L 461.9 SINUSITIS ACUTE 04/09/2014 MADL KNIFE EDGER, KRISSY L 786.2 COUGH 04/09/2014 BARRAGAN DO, LEONEL K 112.1 CANDIDIASIS OF VULVA AND VAGINA 04/09/2014 BARRAGAN DO, LEONEL K 461.9 SINUSITIS ACUTE 04/09/2014 BARRAGAN DO, LEONEL K 786.2 COUGH 04/09/2014 MARCIN KNIFE EDGER, MICHA R 112.1 CANDIDIASIS OF VULVA AND VAGINA 04/09/2014 MARCIN KNIFE EDGER, MICHA R 461.9 SINUSITIS ACUTE 04/09/2014 MARCIN KNIFE EDGER, MICHA R 786.2 COUGH 04/09/2014 BARRAGAN DO, LEONEL K 112.1 CANDIDIASIS OF VULVA AND VAGINA 04/09/2014 BARRAGAN DO, LEONEL K 461.9 SINUSITIS ACUTE 04/09/2014 BARRAGAN DO, LEONEL K 786.2 COUGH 05/06/2014 BARRAGAN DO, LEONEL K V26.9 PROCREATIVE MANAGEMENT 05/06/2014 BARRAGAN DO, LEONEL K V74.5 STD SCREEN 05/06/2014 MARCIN GILLISN, MICHA R V26.9 PROCREATIVE MANAGEMENT 05/06/2014 MARCIN KNIFE EDGER, MICHA R V74.5 STD SCREEN 05/06/2014 BARRAGAN DO, LEONEL K V26.9 PROCREATIVE MANAGEMENT 05/06/2014 BARRAGAN DO, LEONEL K V74.5 STD SCREEN 07/17/2014 REAGAN RICH, ANILA Del Rosario Ot 623.5 07/17/2014 REAGAN RICH, ANILA Del Rosario Ot 634.91 07/17/2014 REAGAN RICH, ANILA T Ot 640.93 07/17/2014 REAGAN RICH, ANILA T Ot 654.73 07/21/2014 RENETTA RICH, CARIDAD Wilkins Ot 632 08/04/2014 SARA RAZO APRN Ot 461.1 08/04/2014 SARA RAZO APRN Ot 490 08/04/2014 SARA RAZO APRN Ot 786.2 09/11/2014 MARCIN MENDEZ MICHA R 708.9 UNSPECIFIED URTICARIA 09/11/2014 BARRAGAN DO LEONEL K 708.9 UNSPECIFIED URTICARIA 09/21/2014 BARRAGAN DO LEONEL K V72.42 TEST POSITIVE RESULT 10/05/2014 Ot V22.0 10/05/2014 WILLIAN RICH, XI Grier Ot V28.81 11/02/2014 WILLIAN RICH, XI Grier Ot V22.1 08/05/2015 Ot V22.0 08/05/2015 XI DORSEY MD Ot V28.81 08/05/2015 XI DORSEY MD Ot V22.1 08/05/2015 Ot V28.81 08/05/2015 BING WEBB Ot 574.50 08/05/2015 BING WEBB Ot 789.06 08/12/2015 KYALH RICH, OMAR Castaneda Ot K80.10 08/12/2015 KYLAH RICH, OMAR Castaneda Ot K80.20 Procedures Code [place] [address] URINE TEST (IN- HOUSE) 02/11/2013 26568 UA LONG DIP 02/11/2013 84184 US OB - EARLY <14 WEEKS 02/11/2013 06145 ROUTINE VENIPUNCTURE 03/03/2013 36668 UA LONG DIP 03/03/2013 51545 CBC 03/04/2013 02056 TSH 03/04/2013 17240 SYPHILLIS-STATE LAB 03/04/2013 27341 HIV ANTIBODIES (RML) 03/04/2013 45857 RUBELLA ANTIBODY, IGG 03/04/2013 65628 ANTIBODY SCREEN (order) 03/04/2013 63663 BLOOD TYPE/Rh FACTOR 03/04/2013 68205 CULTURE URINE 03/04/2013 88561 HEP B SURFACE ANTIGEN (STATE ) 03/04/2013 03339 UA W/ CULTURE IF INDICATED 03/18/2013 75423 TRICHOMONAS (IN-HOUSE) 03/18/2013 42127 CULTURE UROGENITAL 03/19/2013 31295 GC/CHLAM PROBE (STATE) 03/19/2013 15087 UA OB DIP 04/17/2013 78060 US OB - COMPLETE >14 WEEKS 04/17/2013 38123 UA LONG DIP 05/07/2013 89011 CULTURE UROGENITAL 05/08/2013 90863 TEST, URINE (IN- HOUSE) 12/17/2013 96900 TEST, URINE (IN- HOUSE) 05/06/2014 59684 UA LONG DIP 05/06/2014 39322 ROUTINE VENIPUNCTURE 05/06/2014 37687 TRICHOMONAS (IN-HOUSE) 05/06/2014 54195 SYPHILLIS-STATE [facility] 05/07/2014 72027 HIV (STATE LAB) 05/07/2014 12902 GC/CHLAM PROBE (STATE) 05/07/2014 HERPSM1,2 HERPES SIMPLEX 1 AND 2, IGM, IGG 05/07/2014 44838 CULTURE UROGENITAL 05/07/2014 10717 TEST, URINE (IN- HOUSE) 09/21/2014 Results There is no data. Encounters ACCT No. Visit Date/Time Discharge Status Pt. Type Provider Facility Loc./Unit Complaint [id number] 09/21/2014 09:23:00 09/21/2014 23:59:59 CLS Outpatient LEONEL BARRAGAN DO [id number] 09/11/2014 10:07:00 09/11/2014 23:59:59 CLS Outpatient MICHA BURCH APRN [id number] 05/06/2014 09:52:00 05/06/2014 23:59:59 CLS Outpatient LEONEL BARRAGAN DO [id number] 04/09/2014 08:40:00 04/09/2014 23:59:59 CLS Outpatient KRISSY JANSEN APRN [id number] 12/17/2013 14:26:00 12/17/2013 23:59:59 CLS Outpatient BRENDEN MONTES APRN [id number] 11/28/2013 10:20:00 11/28/2013 23:59:59 CLS Outpatient KENRICK DESAI MD [id number] 10/25/2013 09:48:00 10/25/2013 23:59:59 CLS Outpatient ELLA MONGE APRN [id number] 02/11/2013 09:29:00 02/11/2013 23:59:59 CLS Outpatient [id number] 11/14/2012 13:48:00 11/14/2012 23:59:59 CLS Outpatient ASMITA MERCADO MD [id number] 05/07/2013 09:45:00 Document Registration [id number] 04/17/2013 14:51:00 Document Registration [id number] 04/17/2013 14:51:00 Document Registration [id number] 03/18/2013 13:37:00 Document Registration [id number] 03/18/2013 13:37:00 Document Registration [id number] 03/03/2013 16:23:00 Document Registration [id number] 02/22/2013 11:04:00 Document Registration [id number] 01/19/2013 21:11:06 RECURRING [id number] 08/12/2015 09:56:00 08/12/2015 16:00:00 DIS Outpatient OMAR MONTERO MD [facility] [id number] 08/10/2015 11:26:00 08/10/2015 23:59:59 CLS Outpatient OMAR MONTERO MD [facility] PREOP [id number] 08/05/2015 15:50:00 08/05/2015 19:44:00 DIS Emergency BING WEBB [facility] ER [id number] 10/12/2014 13:38:00 10/12/2014 23:59:59 CLS Outpatient XI DORSEY MD [facility] RAD [id number] 08/04/2014 19:57:00 08/04/2014 22:00:00 DIS Emergency SARA RAZO APRN [facility] ER [id number] 07/21/2014 09:57:00 07/21/2014 15:30:00 DIS Outpatient CARIDAD JACKSON MD [facility] [id number] 07/17/2014 16:43:00 07/17/2014 18:53:00 DIS Emergency ANILA KIRK MD [facility] ER [id number] 06/22/2014 13:28:00 06/22/2014 23:59:59 CLS Outpatient XI DORSEY MD [facility] RAD [id number] 10/09/2013 20:45:00 10/12/2013 12:20:00 DIS Inpatient STEFANO CHAVIRA DO [facility] WS [id number] 09/27/2013 22:47:00 09/29/2013 01:20:00 DIS Outpatient STEFANO CHAVIRA DO [facility] WSo [id number] 09/24/2013 13:18:00 09/24/2013 14:45:00 DIS Outpatient STEFANO CHAVIRA DO [facility] [id number] 08/16/2013 18:41:00 08/16/2013 20:01:00 DIS Outpatient MIRANDA GUAJARDO DO [place] [facility] [id number] 06/23/2013 20:35:00 06/23/2013 21:50:00 DIS Outpatient MIRANDA GUAJARDO DO [place] [facility] [id number] 05/09/2013 11:50:00 05/09/2013 16:56:00 DIS Emergency CYNTHIA RICH, MELISSA Fritz [facility] ER [id number] 11/24/2017 10:27:00 ACT Emergency JUSTYNA RICH, MAGALI Grier [facility] ER VOMITING, CHILLS, BODY ACHES, FEVER [id number] 01/04/2015 09:50:00 Document Registration [id number] 10/05/2014 12:26:00 Document Registration [id number] 10/05/2014 12:26:00 Document Registration [id number] 02/19/2013 14:14:00 Document Registration
[2017-11-24] MEDS ORDERED: ONDANSETRON 4 MG (ZOFRAN) ORAL DISSOLVE TAB SL STA (11:54)
[2017-11-24] MEDS ORDERED: ACETAMINOPHEN 500 MG TAB (TYLENOL) PO STA (11:54)
[2017-11-24] MEDS ORDERED: PSEU60TA84 PO (12:25)
[2017-11-24] MEDS ORDERED: ONDA8TAB13 PO (12:25)
--- NOTE | 2017-11-24 12:27 | ED Cough/URI ---
General Chief Complaint: Fever-Adult/Adol Stated Complaint: VOMITING, CHILLS, BODY ACHES, FEVER Nursing Triage Note: FEVER, COUGH, VOMITING X3 DAYS. Source: patient Exam Limitations: no limitations History of Present Illness Time seen by provider: 11:45 Initial Comments 22-year-old female patient presents to the emergency department with complaints of fever, chills, malaise, body aches, cough, congestion, rhinorrhea, and sneezing for 3 days. Son is being seen for similar symptoms. Timing/Duration: getting worse, other (3 day onset) Severity/Quality: productive cough (clear productive cough) Prior Episodes/Possible Cause: no prior episodes Modifying Factors: Worse With Coughing Allergies and Home Medications Allergies Coded Allergies: No Known Drug Allergies (Unverified , 05/09/13) Home Medications Ondansetron 8 Mg Tab.rapdis, 8 MG PO Q6H PRN for NAUSEA/VOMITING-1ST LINE, #10 Ref 0 Prescribed by: BING SALDANA on 11/24/17 1225 Pseudoephedrine HCl 60 Mg Tablet, 60 MG PO Q4H PRN for CONGESTION, #30 Ref 0 Prescribed by: BING SALDANA on 11/24/17 1225 Constitutional: see HPI, chills, fever, malaise EENTM: see HPI, ear pain, nose congestion, throat pain, No ear discharge Respiratory: see HPI, cough, No dyspnea on exertion, phlegm, No short of breath , No stridor, No wheezing Cardiovascular: no symptoms reported Gastrointestinal: No abdominal pain, No constipation, No diarrhea, loss of appetite, nausea, No vomiting Genitourinary: no symptoms reported Musculoskeletal: see HPI, other (generalized body aches) Skin: No lesions, No rash Psychiatric/Neurological: No Symptoms Reported All Other Systems Reviewed Negative Unless Noted: Yes (Negative excepted noted.) Past Ilbixqp-Mflpfd-Hxbkqe Hx Patient Social History Alcohol Use: Denies Use Recreational Drug Use: No Smoking Status: Never a Smoker Recent Foreign Travel: No Contact w/Someone Who Travel: No Recent Infectious Disease Expo: No Immunizations Up To Date Date of Influenza Vaccine: Sep 24, 2013 Seasonal Allergies Seasonal Allergies: Yes Surgeries History of Surgeries: Yes (D&C, WISDOM TEETH) Surgeries: Section, Gallbladder Respiratory History of Respiratory Disorde: No Cardiovascular History of Cardiac Disorders: No Neurological History of Neurological Disord: No Gastrointestinal History of Gastrointestinal Di: Yes Gastrointestinal Disorders: Gall Bladder Disease Musculoskeletal History of Musculoskeletal Dis: No Endocrine History of Endocrine Disorders: No Cancer History of Cancer: No Psychosocial History of Psychiatric Problem: No Integumentary History of Skin or Integumenta: Yes (INTERMITTANT RASHES) Blood Transfusions History of Blood Disorders: No Reviewed Nursing Assessment Reviewed/Agree w Nursing PMH: Yes Family Medical History Significant Family History: No Pertinent Family Hx Family Medial History: Cancer (Maternal and paternal grandmother) Dysphagia (Sticklers syndrome- brother and sister) Physical Exam Vital Signs Vital Sign - Last 12Hours 11/24/17 10:35 Temp 101.0 Pulse 145 Resp 18 Pulse Ox 98 O2 Delivery Room Air Capillary Refill : Less Than 3 Seconds General Appearance: WD/WN, no apparent distress HEENT: PERRL/EOMI, TM abnormal (R) (fluid levels without erythema, bulging, or retractions.), TM abnormal (L) (fluid levels without erythema, bulging, or retractions.), pharyngeal erythema, No tonsillar exudate, other (positive congestion and rhinorrhea) Neck: full range of motion, supple, other (bilateral anterior cervical lymphadenopathy, tender to palpation.) Respiratory: lungs clear, normal breath sounds, no respiratory distress, no accessory muscle use Cardiovascular: normal peripheral pulses, no edema, no murmur, tachycardia Gastrointestinal: normal bowel sounds, non tender, soft, no organomegaly, No distended Extremities: no pedal edema, normal capillary refill Neurologic/Psychiatric: alert, normal mood/affect, oriented x 3 Skin: normal color, warm/dry Progress/Results/Core Measures Suspected Sepsis Recent Fever Within 48 Hours: Yes Infection Criteria Present: Suspected New Infection New/Unexplained Altered Menta: No Sepsis Screen: Possible Sepsis Risk Sepsis Diagnosis: SIRS Temperature:101.0 Pulse: 145 Respiratory Rate: 18 Blood Pressure / Mean: Results/Orders Micro Results Microbiology 11/24/17 Influenza Types A,B Antigen (RAYMUNDO) - Final, Complete My Orders Orders - BING SALDANA Acetaminophen Tablet (Tylenol Tablet) (11/24/17 11:54) Ondansetron Oral Dissolve Tab (Zofran (11/24/17 11:54) Vital Signs/I&O Vital Sign - Last 12Hours 11/24/17 11/24/17 10:35 12:49 Temp 101.0 102.0 Pulse 145 119 Resp 18 18 B/P (MAP) Pulse Ox 98 97 O2 Delivery Room Air Capillary Refill : Less Than 3 Seconds Departure Communication (Admissions) Progress Notes Patient seen and evaluated. Influenza test negative. In light of a negative influenza test, patient's symptoms are similar to her sons. Son did test positive for influenza A. Plan for symptomatic care as patient is greater than 48 hours outside of the treatment window. proceed with [facility] to home. Impression Impression: Primary Impression: Influenza Disposition: HOME, SELF-CARE Condition: Improved Departure-Patient Inst. Decision time for Depature: 12:23 Referrals: NO,LOCAL PHYSICIAN (PCP/Family) Primary Care Physician Patient Instructions: Flu, Adult (DC) Add. Discharge Instructions: All discharge instructions reviewed with patient and/or family. Voiced understanding. Medications as instructed. Tylenol extra strength over-the- counter as directed for pain or fever. Ibuprofen 800 mg by mouth every 8 hours as needed for pain or fever. Push fluids. Cool humidifier. Saline nasal spray and Afrin nasal spray [id number]-[id number] as needed for nasal congestion. Tgpe-yxp-pwevxpl cough suppressants as needed. Follow-up with your primary care provider if no improvement in symptoms. Return to the emergency department for worsened symptoms or any other concerns. Scripts Pseudoephedrine HCl (Pseudoephedrine HCl) 60 Mg Tablet 60 MG PO Q4H Y for CONGESTION, #30 TAB 0 Refills Prov: BING SALDANA 11/24/17 Ondansetron (Ondansetron Odt) 8 Mg Tab.rapdis 8 MG PO Q6H Y for NAUSEA/VOMITING-1ST LINE, #10 TAB 0 Refills Prov: BING SALDANA 11/24/17 Work/School Note: Local [employer]ing, Work Release Form Date Seen in the Emergency Department: Nov 24, 2017 Return to Work: Nov 27, 2017 Restrictions: Return-No Fever (24hrs) BING SALDANA Nov 24, 2017 12:27
[2017-11-24 12:49] VITALS: BP 120/68
== END 2017-11-24 12:49 | disposition home or self-care (01) ==
LOC: EDUNIT# 10:24 → ER 10:27
DX: J11.1 Influenza due to unidentified influenza virus with other respiratory manifestations (principal); Z87.19 Personal history of other diseases of the digestive system; Z87.59 Personal history of other complications of pregnancy, childbirth and the puerperium
CPT/HCPCS: 87804; 99283

== ENCOUNTER 2018-01-05 00:46 | Emergency (ER) | payer MEDICAID ==
[~2018-01-05] VITALS: Ht 157.5 cm; Wt 90.7 kg
[~2018-01-05 00:46] MED LIST changes: +PSEU60TA84 PO
[2018-01-05 02:22] LABS: BILIRUBIN,URINE NEGATIVE (NEGATIVE); CLARITY,URINE CLEAR; COLOR,URINE YELLOW; GLUCOSE, URINE (UA) NEGATIVE (NEGATIVE); KETONES,URINE NEGATIVE (NEGATIVE); LEUKOCYTE ESTERASE ,URINE 1+ (NEGATIVE); NITRITE,URINE NEGATIVE (NEGATIVE); PH,URINE 7 (5-9); PROTEIN,URINE NEGATIVE (NEGATIVE); UROBILINOGEN,URINE NORMAL (NORMAL)
[2018-01-05 02:37] LABS: BACTERIA,URINE TRACE /HPF; WBC,URINE RARE /HPF
[2018-01-05] MEDS ORDERED: NS IV 1000 ML 1,000 ML IV ONE (03:04)
[2018-01-05] MEDS ORDERED: fentaNYL INJECTION 100 MCG/2 ML AMP IVP ONE ×2 (03:15→04:45)
[2018-01-05] MEDS ORDERED: ONDANSETRON 4 MG/2 ML (SDV) Z0FRAN IVP ONE (03:15)
[2018-01-05 03:20] LABS: BASOPHILS % (AUTO) 0 % (0-10); EOSINOPHILS # (AUTO) 0.2 10^3/uL (0.0-0.3); EOSINOPHILS % (AUTO) 2 % (0-10); HEMATOCRIT 41 % (35-52); HEMOGLOBIN 14.3 G/DL (11.5-16.0); LYMPHOCYTES % (AUTO) 31 % (12-44); MEAN CORPUSCULAR HEMOGLOBIN 31 PG (25-34); MEAN CORPUSCULAR HGB CONC 35 G/DL (32-36); MEAN CORPUSCULAR VOLUME 91 FL (80-99); MEAN PLATELET VOLUME 10.9 FL (7.4-10.4); MONOCYTES # (AUTO) 0.6 X 10^3 (0.0-1.0); MONOCYTES % (AUTO) 7 % (0-12); NEUTROPHILS # (AUTO) 5.8 X 10^3 (1.8-7.8); NEUTROPHILS % (AUTO) 60 % (42-75); PLATELET COUNT 272 10^3/uL (130-400); RED BLOOD COUNT 4.55 10^6/uL (4.35-5.85); RED CELL DISTRIBUTION WIDTH 13.6 % (10.0-14.5); WHITE BLOOD COUNT 9.7 10^3/uL (4.3-11.0)
[2018-01-05 03:43] LABS: ALANINE AMINOTRANSFERASE 19 U/L (0-55); ALBUMIN 3.9 GM/DL (3.2-4.5); ALKALINE PHOSPHATASE 77 U/L (40-136); BILIRUBIN,TOTAL 0.3 MG/DL (0.1-1.0); BUN/CREATININE RATIO 18; CALCIUM 9.4 MG/DL (8.5-10.1); CARBON DIOXIDE 15 MMOL/L (21-32); CHLORIDE 115 MMOL/L (98-107); CREATININE SERUM 0.77 MG/DL (0.60-1.30); GFR ESTIMATED > 60; GLUCOSE 97 MG/DL (70-105); LIPASE 33 U/L (8-78); POTASSIUM 3.6 MMOL/L (3.6-5.0); SODIUM 141 MMOL/L (135-145); TOTAL PROTEIN 6.6 GM/DL (6.4-8.2)
[2018-01-05] MEDS ORDERED: IOHEXOL 350 MG/ML 100 ML (OMNIPAQUE 350) VIAL IV ONE (04:30)
[2018-01-05] MEDS ORDERED: NS 250 ML (IVPB) BAG IV ONE (04:30)
[2018-01-05] MEDS ORDERED: RX-ONDANSETRON 4 MG ODT (ZOFRAN) PPK #4 SL STA (05:32)
--- NOTE | 2018-01-05 05:44 | ED Abdominal Pain ---
General Chief Complaint: Abdominal/GI Problems Stated Complaint: ABD PAIN Nursing Triage Note: abdominal pain right side lower radiating to the back. vomitting Sepsis Screen: No Definite Risk Source of Information: Patient Exam Limitations: No Limitations Allergies and Home Medications Allergies Coded Allergies: No Known Drug Allergies (Unverified , 05/09/13) Home Medications Ondansetron 8 Mg Tab.rapdis, 8 MG PO Q6H PRN for NAUSEA/VOMITING-1ST LINE Prescribed by: BING SALDANA on 11/24/17 1225 Pseudoephedrine HCl 60 Mg Tablet, 60 MG PO Q4H PRN for CONGESTION Prescribed by: BING SALDANA on 11/24/17 1225 Past Bmfovnv-Oyorgr-Jkwcrg Hx Patient Social History Recent Foreign Travel: No Contact w/Someone Who Travel: No Recent Infectious Disease Expo: No Immunizations Up To Date Date of Influenza Vaccine: Sep 24, 2013 Seasonal Allergies Seasonal Allergies: Yes Surgeries History of Surgeries: Yes (D&C, WISDOM TEETH) Surgeries: Section, Gallbladder Respiratory History of Respiratory Disorde: No Cardiovascular History of Cardiac Disorders: No (Intercranial HTN) Neurological History of Neurological Disord: No Reproductive System Hx : 3 Hx Para: 3 Gastrointestinal History of Gastrointestinal Di: Yes Gastrointestinal Disorders: Gall Bladder Disease Musculoskeletal History of Musculoskeletal Dis: No Endocrine History of Endocrine Disorders: No Cancer History of Cancer: No Psychosocial History of Psychiatric Problem: No Integumentary History of Skin or Integumenta: Yes (INTERMITTANT RASHES) Blood Transfusions History of Blood Disorders: No Family Medical History Significant Family History: No Pertinent Family Hx Family Medial History: Cancer (Maternal and paternal grandmother) Dysphagia (Sticklers syndrome- brother and sister) Physical Exam Vital Signs VS - Last 72 Hours, by Label 01/05/18 03:28 Temp 96.9 Pulse 93 Resp 20 B/P (MAP) 113/77 (89) O2 Delivery Room Air Capillary Refill : Less Than 3 Seconds Progress/Results/Core Measures Results/Orders Lab Results Laboratory Tests Test 01/05/18 02:09 01/05/18 03:09 Range/Units Urine Color YELLOW Urine Clarity CLEAR Urine pH 7 5-9 Urine Specific [place] 1.015 L 1.016-1.022 Urine Protein NEGATIVE NEGATIVE Urine Glucose (UA) NEGATIVE NEGATIVE Urine Ketones NEGATIVE NEGATIVE Urine Nitrite NEGATIVE NEGATIVE Urine Bilirubin NEGATIVE NEGATIVE Urine Urobilinogen NORMAL NORMAL MG/DL Urine Leukocyte Esterase 1+ H NEGATIVE Urine RBC (Auto) NEGATIVE NEGATIVE Urine RBC NONE /HPF Urine WBC RARE /HPF Urine Squamous Epithelial Cells 10-25 H /HPF Urine Crystals NONE /LPF Urine Bacteria TRACE /HPF Urine Casts NONE /LPF Urine Mucus NEGATIVE /LPF Urine Culture Indicated NO Urine Test NEGATIVE NEGATIVE White Blood Count 9.7 4.3-11.0 10^3/uL Red Blood Count 4.55 4.35-5.85 10^6/uL Hemoglobin 14.3 11.5-16.0 G/DL Hematocrit 41 35-52 % Mean Corpuscular Volume 91 80-99 FL Mean Corpuscular Hemoglobin 31 25-34 PG Mean Corpuscular Hemoglobin Concent 35 32-36 G/DL Red Cell Distribution Width 13.6 10.0-14.5 % Platelet Count 272 130-400 10^3/uL Mean Platelet Volume 10.9 H 7.4-10.4 FL Neutrophils (%) (Auto) 60 42-75 % Lymphocytes (%) (Auto) 31 12-44 % Monocytes (%) (Auto) 7 0-12 % Eosinophils (%) (Auto) 2 0-10 % Basophils (%) (Auto) 0 0-10 % Neutrophils # (Auto) 5.8 1.8-7.8 X 10^3 Lymphocytes # (Auto) 3.0 1.0-4.0 X 10^3 Monocytes # (Auto) 0.6 0.0-1.0 X 10^3 Eosinophils # (Auto) 0.2 0.0-0.3 10^3/uL Basophils # (Auto) 0.0 0.0-0.1 10^3/uL Sodium Level 141 135-145 MMOL/L Potassium Level 3.6 3.6-5.0 MMOL/L Chloride Level 115 H 98-107 MMOL/L Carbon Dioxide Level 15 L 21-32 MMOL/L Anion Gap 11 5-14 MMOL/L Blood Urea Nitrogen 14 7-18 MG/DL Creatinine 0.77 0.60-1.30 MG/DL Estimat Glomerular Filtration Rate > 60 BUN/Creatinine Ratio 18 Glucose Level 97 70-105 MG/DL Calcium Level 9.4 8.5-10.1 MG/DL Total Bilirubin 0.3 0.1-1.0 MG/DL Aspartate Amino Transf (AST/SGOT) 14 5-34 U/L Alanine Aminotransferase (ALT/SGPT) 19 0-55 U/L Alkaline Phosphatase 77 40-136 U/L Total Protein 6.6 6.4-8.2 GM/DL Albumin 3.9 3.2-4.5 GM/DL Lipase 33 8-78 U/L My Orders Orders - ANILA KIRK MD Hcg,Qualitative Urine (01/05/18 01:48) Ua Culture If Indicated (01/05/18 01:48) Ct Abd/Pelv W (Appendicitis) (01/05/18 03:04) Cbc With Automated Diff (01/05/18 03:04) Comprehensive Metabolic Panel (01/05/18 03:04) Lipase (01/05/18 03:04) Saline Lock/Iv-Start (01/05/18 03:04) Ns Iv 1000 Ml (Sodium Chloride 0.9%) (01/05/18 03:04) Ondansetron Injection (Zofran Injectio (01/05/18 03:15) Fentanyl Injection (Sublimaze Injection (01/05/18 03:15) Iohexol Injection (Omnipaque 350 Mg/Ml 1 (01/05/18 04:30) Ns (Ivpb) (Sodium Chloride 0.9%) (01/05/18 04:30) Fentanyl Injection (Sublimaze Injection (01/05/18 04:45) Rx-Ondansetron Po (Rx-Zofran Po) (01/05/18 05:32) Ketorolac Injection (Toradol Injection) (01/05/18 05:45) Medications Given in ED Current Medications Medications Dose Ordered Sig/Michelle Route Start Time Stop Time Status Last Admin Dose Admin Fentanyl Citrate 50 mcg ONCE ONCE IVP 01/05/18 03:15 01/05/18 03:16 DC 01/05/18 03:20 50 MCG Fentanyl Citrate 50 mcg ONCE ONCE IVP 01/05/18 04:45 01/05/18 04:46 DC 01/05/18 04:35 50 MCG Iohexol 100 ml ONCE ONCE IV 01/05/18 04:30 01/05/18 05:12 DC 01/05/18 04:58 100 ML Ondansetron HCl 8 mg ONCE ONCE IVP 01/05/18 03:15 01/05/18 03:16 DC 01/05/18 03:20 8 MG Sodium Chloride 80 ml ONCE ONCE IV 01/05/18 04:30 01/05/18 05:12 DC 01/05/18 04:58 80 ML Sodium Chloride 1,000 ml @ 0 mls/hr Q0M ONCE IV 01/05/18 03:04 01/05/18 03:07 DC 01/05/18 03:20 0 MLS/HR Vital Signs/I&O Vital Sign - Last 12Hours 01/05/18 03:28 Temp 96.9 Pulse 93 Resp 20 B/P (MAP) 113/77 (89) O2 Delivery Room Air Blood Pressure Mean: 89 Departure Impression Impression: Primary Impression: Right lower quadrant pain Additional Impression: Nausea & vomiting Qualified Codes: R11.2 - Nausea with vomiting, unspecified Disposition: 01 HOME, SELF-CARE Condition: Improved Departure-Patient Inst. Decision time for Depature: 05:30 Referrals: [facility] (PCP/Family) Primary Care Physician Patient Instructions: Acute Abdomen (Belly Pain), Adult (DC) Add. Discharge Instructions: You may take ibuprofen up to 6 mg every 6 hours as needed for pain. Add Tylenol (acetaminophen) up to 1000 mg every 6 hours as needed for additional pain relief. Dissolve the Zofran (ondansetron) under your tongue every 4 hours as needed for nausea and vomiting. Start with a clear liquid diet and gradually advance your diet with small quantities of bland food as tolerated. Return to emergency room if symptoms worsen. Otherwise follow-up with your primary care provider next week. All discharge instructions reviewed with patient and/or family. Voiced understanding. ANILA KIRK MD Jan 05, 2018 05:44
[2018-01-05] MEDS ORDERED: KETOROLAC 30 MG/ML VIAL IVP ONE (05:45)
[2018-01-05 05:48] VITALS: BP 113/77
--- NOTE | 2018-01-05 07:25 | Diagnostic Imaging Report ---
PROCEDURE: CT abdomen and pelvis with contrast, rule out appendicitis. TECHNIQUE: Multiple contiguous axial images were obtained through the abdomen and pelvis after the administration of intravenous contrast. INDICATION: Right lower quadrant pain. FINDINGS: The heart size is normal. The lung bases are clear. The liver is normal in size without focal lesions. The gallbladder is either small or absent. There is no biliary duct dilatation. Spleen is normal. Pancreas, adrenal glands and kidneys are unremarkable. The aorta is nonaneurysmal. The bowel gas pattern is nonspecific. There is no free air. There is no ascites. There are no focal inflammatory changes. Specifically, the appendix is normal. There is no pelvic mass, adenopathy or free fluid. Uterus is normal. Bladder is normal. The osseous structures are unremarkable. IMPRESSION: No acute abnormality in the abdomen or pelvis. Specifically, the appendix is normal. Dictated by: Dictated on workstation # [id number]
== END 2018-01-05 05:48 | disposition home or self-care (01) ==
LOC: EDUNIT# 00:46 → ER 00:48
DX: R10.31 Right lower quadrant pain (principal); R11.2 Nausea with vomiting, unspecified; Z87.59 Personal history of other complications of pregnancy, childbirth and the puerperium
CPT/HCPCS: 36415; 74177; 80053; 81000; 83690; 84703; 85025; 96361; 96374; 96375; 96376

== ENCOUNTER 2018-01-16 22:19 | Emergency (ER) | payer MEDICAID ==
[~2018-01-16] VITALS: Ht 157.5 cm; Wt 90.7 kg
[2018-01-16 22:55] LABS: BILIRUBIN,URINE NEGATIVE (NEGATIVE); CLARITY,URINE CLEAR; COLOR,URINE YELLOW; GLUCOSE, URINE (UA) NEGATIVE (NEGATIVE); KETONES,URINE NEGATIVE (NEGATIVE); LEUKOCYTE ESTERASE ,URINE 1+ (NEGATIVE); NITRITE,URINE NEGATIVE (NEGATIVE); PH,URINE 6.5 (5-9); PROTEIN,URINE NEGATIVE (NEGATIVE); UROBILINOGEN,URINE NORMAL (NORMAL)
[2018-01-16 23:09] LABS: BACTERIA,URINE FEW /HPF; SQUAMOUS EPITHELIAL CELL,UR 0-2 /HPF; WBC,URINE RARE /HPF
[2018-01-16] MEDS ORDERED: KETOROLAC 30 MG/ML VIAL IVP STA (23:18)
[2018-01-16] MEDS ORDERED: KETOROLAC 30 MG/ML VIAL ONE (23:28)
[2018-01-16 23:33] LABS: BASOPHILS % (AUTO) 0 % (0-10); EOSINOPHILS # (AUTO) 0.3 10^3/uL (0.0-0.3); EOSINOPHILS % (AUTO) 3 % (0-10); HEMATOCRIT 43 % (35-52); HEMOGLOBIN 14.7 G/DL (11.5-16.0); LYMPHOCYTES # (AUTO) 3.1 X 10^3 (1.0-4.0); LYMPHOCYTES % (AUTO) 30 % (12-44); MEAN CORPUSCULAR HEMOGLOBIN 31 PG (25-34); MEAN CORPUSCULAR HGB CONC 34 G/DL (32-36); MEAN CORPUSCULAR VOLUME 92 FL (80-99); MEAN PLATELET VOLUME 10.6 FL (7.4-10.4); MONOCYTES # (AUTO) 0.7 X 10^3 (0.0-1.0); MONOCYTES % (AUTO) 7 % (0-12); NEUTROPHILS # (AUTO) 6.2 X 10^3 (1.8-7.8); NEUTROPHILS % (AUTO) 60 % (42-75); PLATELET COUNT 283 10^3/uL (130-400); RED BLOOD COUNT 4.68 10^6/uL (4.35-5.85); RED CELL DISTRIBUTION WIDTH 13.8 % (10.0-14.5); WHITE BLOOD COUNT 10.2 10^3/uL (4.3-11.0)
[2018-01-16 23:43] LABS: AMPHETAMINE SCREEN, URINE NEGATIVE (NEGATIVE); BARBITURATE SCREEN URINE NEGATIVE (NEGATIVE); BENZODIAZEPINES SCREEN URINE NEGATIVE (NEGATIVE); CANNABINOID SCREEN, URINE NEGATIVE (NEGATIVE); COCAINE SCREEN URINE NEGATIVE (NEGATIVE); METHADONE STAT NEGATIVE (NEGATIVE); METHAMPHETAMINE SCREEN URINE S NEGATIVE (NEGATIVE); OPIATE SCREEN URINE NEGATIVE (NEGATIVE); OXYCODONE STAT NEGATIVE (NEGATIVE); PROPOXYPHENE STAT NEGATIVE (NEGATIVE); TRICYCLIC ANTIDEPRESSANTS SCRE NEGATIVE (NEGATIVE)
[2018-01-17] MEDS ORDERED: NS 250 ML (IVPB) BAG IV ONE
[2018-01-17] MEDS ORDERED: IOHEXOL 350 MG/ML 100 ML (OMNIPAQUE 350) VIAL IV ONE
[2018-01-17 00:09] LABS: ALANINE AMINOTRANSFERASE 29 U/L (0-55); ALBUMIN 4.3 GM/DL (3.2-4.5); ALKALINE PHOSPHATASE 80 U/L (40-136); AMYLASE 83 U/L (25-125); BILIRUBIN,TOTAL 0.2 MG/DL (0.1-1.0); BUN/CREATININE RATIO 17; CALCIUM 9.5 MG/DL (8.5-10.1); CARBON DIOXIDE 24 MMOL/L (21-32); CHLORIDE 108 MMOL/L (98-107); CREATININE SERUM 0.75 MG/DL (0.60-1.30); GFR ESTIMATED > 60; GLUCOSE 100 MG/DL (70-105); LIPASE 49 U/L (8-78); POTASSIUM 3.6 MMOL/L (3.6-5.0); SODIUM 140 MMOL/L (135-145); TOTAL PROTEIN 7.4 GM/DL (6.4-8.2)
[2018-01-17] MEDS ORDERED: METR500T PO (01:15)
[2018-01-17] MEDS ORDERED: DOXY100C42 PO (01:15)
[2018-01-17] MEDS ORDERED: LIDOCAINE 1% INJ 20 ML (XYLOCAINE) VIAL INJ ONE (01:15)
[2018-01-17] MEDS ORDERED: cefTRIAXone 1 GM (ROCEPHIN) VIAL IM ONE (01:15)
[2018-01-17] MEDS ORDERED: AZITHROMYCIN 250 MG TAB (ZITHROMAX) PO SCH (01:15)
[2018-01-17] MEDS ORDERED: NAPR-915 PO (01:15)
--- NOTE | 2018-01-17 01:15 | ED GU-Female ---
General Chief Complaint: -Female Stated Complaint: MISSED PERIOD Nursing Triage Note: pt reports she had 3 negative et 1 positive test today. she reports she also has cont rlq abd pain. Nursing Sepsis Screen: No Definite Risk Allergies and Home Medications Allergies Coded Allergies: No Known Drug Allergies (Unverified , 05/09/13) Home Medications Ondansetron 8 Mg Tab.rapdis, 8 MG PO Q6H PRN for NAUSEA/VOMITING-1ST LINE Prescribed by: BING SALDANA on 11/24/17 1225 Pseudoephedrine HCl 60 Mg Tablet, 60 MG PO Q4H PRN for CONGESTION Prescribed by: BING SALDANA on 11/24/17 1225 Past Hnrfvis-Mdxlpl-Qxatdd Hx Patient Social History Alcohol Use: Occasionally Uses Recreational Drug Use: No Smoking Status: Current Everyday Smoker Recent Foreign Travel: No Contact w/Someone Who Travel: No Recent Infectious Disease Expo: No Immunizations Up To Date Date of Influenza Vaccine: Sep 12, 2017 Seasonal Allergies Seasonal Allergies: Yes Surgeries History of Surgeries: Yes (D&C, WISDOM TEETH) Surgeries: Section, Gallbladder Respiratory History of Respiratory Disorde: No Cardiovascular History of Cardiac Disorders: No (intracranial HTN) Neurological History of Neurological Disord: No Reproductive System Last Menstrual Period: Dec 17, 2017 Genitourinary History of Genitourinary Disor: No Gastrointestinal History of Gastrointestinal Di: Yes Gastrointestinal Disorders: Gall Bladder Disease Musculoskeletal History of Musculoskeletal Dis: No Endocrine History of Endocrine Disorders: No HEENT History of HEENT Disorders: No Cancer History of Cancer: No Psychosocial History of Psychiatric Problem: No Integumentary History of Skin or Integumenta: Yes (INTERMITTANT RASHES) Blood Transfusions History of Blood Disorders: No Family Medical History Significant Family History: No Pertinent Family Hx Family Medial History: Cancer (Maternal and paternal grandmother) Dysphagia (Sticklers syndrome- brother and sister) Physical Exam Vital Signs Vital Signs - First Documented 01/16/18 22:25 Temp 98.6 Pulse 111 Resp 16 B/P (MAP) 125/97 (106) Pulse Ox 97 O2 Delivery Room Air Capillary Refill : Less Than 3 Seconds Progress/Results/Core Measures Suspected Sepsis Recent Fever Within 48 Hours: No Infection Criteria Present: None New/Unexplained Altered Menta: No Sepsis Screen: No Definite Risk Sepsis Diagnosis: SIRS Temperature:98.6 Pulse: 111 Respiratory Rate: 16 Laboratory Tests 01/16/18 23:25: White Blood Count 10.2 Blood Pressure 125 /97 Mean: 106 Laboratory Tests 01/16/18 23:25: Creatinine 0.75, Platelet Count 283, Total Bilirubin 0.2 Results/Orders Lab Results Laboratory Tests Test 01/16/18 22:24 01/16/18 23:10 01/16/18 23:25 Range/Units Urine Color YELLOW Urine Clarity CLEAR Urine pH 6.5 5-9 Urine Specific [place] 1.015 L 1.016-1.022 Urine Protein NEGATIVE NEGATIVE Urine Glucose (UA) NEGATIVE NEGATIVE Urine Ketones NEGATIVE NEGATIVE Urine Nitrite NEGATIVE NEGATIVE Urine Bilirubin NEGATIVE NEGATIVE Urine Urobilinogen NORMAL NORMAL MG/DL Urine Leukocyte Esterase 1+ H NEGATIVE Urine RBC (Auto) NEGATIVE NEGATIVE Urine RBC NONE /HPF Urine WBC RARE /HPF Urine Squamous Epithelial Cells 0-2 /HPF Urine Crystals NONE /LPF Urine Bacteria FEW H /HPF Urine Casts NONE /LPF Urine Mucus NEGATIVE /LPF Urine Culture Indicated NO Urine Opiates Screen NEGATIVE NEGATIVE Urine Oxycodone Screen NEGATIVE NEGATIVE Urine Methadone Screen NEGATIVE NEGATIVE Urine Propoxyphene Screen NEGATIVE NEGATIVE Urine Barbiturates Screen NEGATIVE NEGATIVE Ur Tricyclic Antidepressants Screen NEGATIVE NEGATIVE Urine Phencyclidine Screen NEGATIVE NEGATIVE Urine Amphetamines Screen NEGATIVE NEGATIVE Urine Methamphetamines Screen NEGATIVE NEGATIVE Urine Benzodiazepines Screen NEGATIVE NEGATIVE Urine Cocaine Screen NEGATIVE NEGATIVE Urine Cannabinoids Screen NEGATIVE NEGATIVE White Blood Count 10.2 4.3-11.0 10^3/uL Red Blood Count 4.68 4.35-5.85 10^6/uL Hemoglobin 14.7 11.5-16.0 G/DL Hematocrit 43 35-52 % Mean Corpuscular Volume 92 80-99 FL Mean Corpuscular Hemoglobin 31 25-34 PG Mean Corpuscular Hemoglobin Concent 34 32-36 G/DL Red Cell Distribution Width 13.8 10.0-14.5 % Platelet Count 283 130-400 10^3/uL Mean Platelet Volume 10.6 H 7.4-10.4 FL Neutrophils (%) (Auto) 60 42-75 % Lymphocytes (%) (Auto) 30 12-44 % Monocytes (%) (Auto) 7 0-12 % Eosinophils (%) (Auto) 3 0-10 % Basophils (%) (Auto) 0 0-10 % Neutrophils # (Auto) 6.2 1.8-7.8 X 10^3 Lymphocytes # (Auto) 3.1 1.0-4.0 X 10^3 Monocytes # (Auto) 0.7 0.0-1.0 X 10^3 Eosinophils # (Auto) 0.3 0.0-0.3 10^3/uL Basophils # (Auto) 0.0 0.0-0.1 10^3/uL Sodium Level 140 135-145 MMOL/L Potassium Level 3.6 3.6-5.0 MMOL/L Chloride Level 108 H 98-107 MMOL/L Carbon Dioxide Level 24 21-32 MMOL/L Anion Gap 8 5-14 MMOL/L Blood Urea Nitrogen 13 7-18 MG/DL Creatinine 0.75 0.60-1.30 MG/DL Estimat Glomerular Filtration Rate > 60 BUN/Creatinine Ratio 17 Glucose Level 100 70-105 MG/DL Calcium Level 9.5 8.5-10.1 MG/DL Total Bilirubin 0.2 0.1-1.0 MG/DL Aspartate Amino Transf (AST/SGOT) 23 5-34 U/L Alanine Aminotransferase (ALT/SGPT) 29 0-55 U/L Alkaline Phosphatase 80 40-136 U/L Total Protein 7.4 6.4-8.2 GM/DL Albumin 4.3 3.2-4.5 GM/DL Amylase Level 83 25-125 U/L Lipase 49 8-78 U/L My Orders Orders - GORDO HILTON DO Urine Bedside (01/16/18 22:45) Ua Culture If Indicated (01/16/18 22:45) Neisseria Gonorrhea Dna (01/16/18 23:18) Chlam Dna Probe (01/16/18 23:18) Genital Culture (01/16/18 23:18) Wet Prep (01/16/18 23:18) Edith Prep (01/16/18 23:18) Amylase (01/16/18 23:18) Cbc With Automated Diff (01/16/18 23:18) Comprehensive Metabolic Panel (01/16/18 23:18) Drug Screen Stat (Urine) (01/16/18 23:18) Lipase (01/16/18 23:18) Saline Lock/Iv-Start (01/16/18 23:18) Ct Abd/Pelv W (Appendicitis) (01/16/18 23:18) Ketorolac Injection (Toradol Injection) (01/16/18 23:18) Iohexol Injection (Omnipaque 350 Mg/Ml 1 (01/17/18 00:00) Ns (Ivpb) (Sodium Chloride 0.9%) (01/17/18 00:00) Medications Given in ED Current Medications Medications Dose Ordered Sig/Michelle Route Start Time Stop Time Status Last Admin Dose Admin Iohexol 100 ml ONCE ONCE IV 01/17/18 00:00 01/17/18 00:01 DC 01/17/18 00:05 100 ML Sodium Chloride 250 ml ONCE ONCE IV 01/17/18 00:00 01/17/18 00:01 DC 01/17/18 00:05 80 ML Vital Signs/I&O Vital Sign - Last 12Hours 01/16/18 22:25 Temp 98.6 Pulse 111 Resp 16 B/P (MAP) 125/97 (106) Pulse Ox 97 O2 Delivery Room Air Capillary Refill : Less Than 3 Seconds Blood Pressure Mean: 106 Point of Care Testing Urine -Bedside: Negative Departure Impression Impression: Primary Impression: PID (acute pelvic inflammatory disease) Disposition: HOME, SELF-CARE Condition: Stable Departure-Patient Inst. Referrals: [facility] (PCP/Family) Primary Care Physician Patient Instructions: Pelvic Inflammatory Disease (DC) Add. Discharge Instructions: LOTS OF CLEAR LIQUIDS NOTHING IN VAGINA--NO TAMPONS, DOUCHING OR INTERCOURSE FOLLOW UP WITH [facility] IN 3-5 DAYS FOR FURTHER CARE All discharge instructions reviewed with patient and/or family. Voiced understanding. Scripts Naproxen (Naproxen) 500 Mg Tablet 500 MG PO BID, #20 TAB Prov: GORDO HILTON DO 01/17/18 Metronidazole (Flagyl) 500 Mg Tablet 500 MG PO TID for FOR INFECTION, #45 TAB Prov: GORDO HILTON DO 01/17/18 Doxycycline Monohydrate (Doxycycline Monohydrate) 100 Mg Capsule 100 MG PO BID, #30 CAP Prov: GORDO HILTON DO 01/17/18 GORDO HILTON DO Jan 17, 2018 01:15
[2018-01-17] MEDS ORDERED: cefTRIAXone INJECTION 1,000 MG in NS (IVPB) 100 ML IV ONE (01:30)
[2018-01-17 02:10] VITALS: BP 103/78
--- NOTE | 2018-01-17 06:22 | Diagnostic Imaging Report ---
PROCEDURE: CT abdomen and pelvis with contrast, rule out appendicitis. TECHNIQUE: Multiple contiguous axial images were obtained through the abdomen and pelvis after the administration of intravenous contrast. INDICATION: Abdominal pain. COMPARISON: CT abdomen pelvis with IV contrast 01/05/2018. FINDINGS: Lung bases are clear. Cholecystectomy. The liver, pancreas, spleen, adrenals, kidneys, collecting systems and appendix are negative. Reproductive structures are grossly unremarkable. No free intraperitoneal air or fluid. No lymphadenopathy. No evidence of bowel obstruction. Osseous structures are intact. IMPRESSION: No acute CT findings in the abdomen or pelvis. Dictated by: Dictated on workstation # [id number]
== END 2018-01-17 02:14 | disposition home or self-care (01) ==
LOC: EDUNIT# 22:19 → ER 22:20
DX: N73.9 Female pelvic inflammatory disease, unspecified (principal); F17.200 Nicotine dependence, unspecified, uncomplicated; Z87.59 Personal history of other complications of pregnancy, childbirth and the puerperium; Z87.448 Personal history of other diseases of urinary system
CPT/HCPCS: 36415; 74177; 80053; 80306; 81000; 82150; 83690; 84703; 85025; 87070; 87210; 87491; 87591; 96365; 96375

== ENCOUNTER 2018-05-11 00:34 | Emergency (ER) | payer MEDICAID ==
[~2018-05-11] VITALS: Ht 157.5 cm; Wt 89.6 kg
[~2018-05-11 00:34] MED LIST changes: +ACET250T3; +DOXY100C42 PO; +FLUC150T PO; +NAPR-915 PO; +NITR-65 PO; +PHEN-640 PO
--- NOTE | 2018-05-11 00:50 | ED Abdominal Pain ---
General Stated Complaint: PT HAS DONE 3 PREG TESTS POSSITIVE & HAVING PAIN Source of Information: Patient Exam Limitations: No Limitations History of Present Illness Date Seen by Provider: May 11, 2018 Time Seen by Provider: 00:40 Initial Comments Patient presents to ER as a aborta 2 at 4 weeks 1 day by LMP of April 12, 2018. She is not having any bleeding or discharge. She's on day 2 of her Macrobid antibiotics for UTI that was prescribed to her from this ER 2 days ago. She's having some cramp-like pain in her bilateral lower abdomen and a little bit of nausea. No fevers chills cough shortness of breath diarrhea. Allergies and Home Medications Allergies Coded Allergies: No Known Drug Allergies (Unverified , 05/09/13) Home Medications Nitrofurantoin Monohyd/M-Cryst 100 Mg Capsule, 100 MG PO BID Prescribed by: GORDO HILTON on 05/07/181936 Phenazopyridine HCl 200 Mg Tablet, 1 TAB PO TID Prescribed by: GORDO HILTON on 05/07/181936 Patient Home Medication List Home Medication List Reviewed: Yes Review of Systems Constitutional: No chills, No diaphoresis EENTM: No Blurred Vision, No Ear Pain Respiratory: Denies Cough, Denies SOA at Rest Cardiovascular: Denies Chest Pain, Denies Lightheadedness Gastrointestinal: See HPI, Abdominal Pain; Denies Constipated, Denies Diarrhea ; Nausea; Denies Vomiting Genitourinary: Denies Burning, Denies Discharge Musculoskeletal: back pain; No joint pain Skin: No pruritus, No rash Psychiatric/Neurological: Denies Headache, Denies Numbness, Denies Paresthesia Past Wlcphtq-Ecqdep-Kbfgli Hx Patient Social History Alcohol Use: Denies Use Recreational Drug Use: No Smoking Status: Current Everyday Smoker Type Used: Cigarettes Recent Foreign Travel: No Contact w/Someone Who Travel: No Recent Hopitalizations: No Immunizations Up To Date Date of Influenza Vaccine: Sep 12, 2017 Seasonal Allergies Seasonal Allergies: Yes Past Medical History Surgeries: Yes (D&C X 1; WISDOM TEETH; X 3; LUMBAR PUNCTURE) Section, Gallbladder Respiratory: No Cardiac: No Neurological: Yes Female Reproductive Disorders: Denies Genitourinary: No Gastrointestinal: Yes (S/P JENN) Gall Bladder Disease Musculoskeletal: No Endocrine: No HEENT: No Cancer: No Psychosocial: No Integumentary: Yes (INTERMITTENT RASHES) Blood Disorders: No Family Medical History Cancer (Maternal and paternal grandmother) Dysphagia (Sticklers syndrome- brother and sister) No Pertinent Family Hx Physical Exam Vital Signs Vital Signs - First Documented 05/11/18 00:44 Pulse 103 Resp 20 B/P (MAP) 116/79 (91) Pulse Ox 97 O2 Delivery Room Air Capillary Refill : General Appearance: WD/WN, no apparent distress HEENT: PERRL/EOMI, pharynx normal Neck: non-tender, full range of motion Respiratory: lungs clear, normal breath sounds, no respiratory distress, no accessory muscle use Cardiovascular: normal peripheral pulses, regular rate, rhythm Peripheral Pulses: 2+ Radial Pulses (R), 2+ Radial Pulses (L) Gastrointestinal: normal bowel sounds, non tender, soft Extremities: normal inspection, no pedal edema, normal capillary refill Neurologic/Psychiatric: alert, oriented x 3 Skin: normal color, warm/dry Progress/Results/Core Measures Results/Orders Vital Signs/I&O 05/11/18 00:44 Pulse 103 Resp 20 B/P (MAP) 116/79 (91) Pulse Ox 97 O2 Delivery Room Air Departure Impression Primary Impression: UTI (urinary tract infection) Additional Impressions: Qualified Codes: Z3A.01 - Less than 8 weeks gestation of Abdominal cramping Disposition: 01 HOME, SELF-CARE Condition: Stable Departure-Patient Inst. Decision time for Depature: 00:54 Referrals: [facility] (PCP/Family) Primary Care Physician Patient Instructions: How to Adapt to Physical Changes During , How to Plan and Prepare for a Healthy Add. Discharge Instructions: Follow-up with your OB provider next week. You may use 1000 mg of Tylenol every 8 hours. You may also use Benadryl 25 mg once at night if you needed for sleep. Copy Copies To 1: LEONEL BARRAGAN TITUS J May 11, 2018 00:50
[2018-05-11 00:59] VITALS: BP 116/79
== END 2018-05-11 00:59 | disposition home or self-care (01) ==
LOC: EDUNIT# 00:34 → ER 00:38
DX: O23.41 Unspecified infection of urinary tract in pregnancy, first trimester (principal); O99.331 Smoking (tobacco) complicating pregnancy, first trimester; F17.210 Nicotine dependence, cigarettes, uncomplicated; Z90.49 Acquired absence of other specified parts of digestive tract; Z87.19 Personal history of other diseases of the digestive system; Z87.2 Personal history of diseases of the skin and subcutaneous tissue; Z87.59 Personal history of other complications of pregnancy, childbirth and the puerperium; Z98.890 Other specified postprocedural states; Z3A.01 Less than 8 weeks gestation of pregnancy
CPT/HCPCS: 99282

== ENCOUNTER 2018-06-06 16:01 | Emergency (ER) | payer MEDICAID ==
[~2018-06-06] VITALS: Ht 157.5 cm; Wt 93.9 kg
--- NOTE | 2018-06-06 17:36 | ED GU-Female ---
General Chief Complaint: -Female Stated Complaint: CRAMPING AND SPOTTING;7 WKS Nursing Triage Note: PATIENT STATES THAT SHE HAS BEEN HAVING BACK AND PELVIC PAIN AND SPOTTIG X4 DAYS. SHE IS 7 WEEKS . [facility] TOLD HER TO COME TO ER RATHER THAN WAIT TO SEE THEM. Nursing Sepsis Screen: No Definite Risk Source: patient Exam Limitations: no limitations History of Present Illness Date Seen by Provider: Jun 06, 2018 Time Seen by Provider: 17:33 Initial Comments The patient is a 22-year-old white female who presents with a chief complaint of crampy suprapubic pain and spotting for the past 4 days. She is 7 weeks . She has a past history of 3 pregnancies to delivery with the oldest being 4. In addition she has had 2 previous miscarriages. Severity/Quality: mild, moderate Location: suprapubic Allergies and Home Medications Allergies Coded Allergies: No Known Drug Allergies (Unverified , 05/09/13) Home Medications Nitrofurantoin Monohyd/M-Cryst 100 Mg Capsule, 100 MG PO BID Prescribed by: GORDO HILTON on 05/07/181936 Phenazopyridine HCl 200 Mg Tablet, 1 TAB PO TID Prescribed by: GORDO HILTON on 05/07/181936 Patient Home Medication List Home Medication List Reviewed: Yes Review of Systems Constitutional: see HPI EENTM: no symptoms reported Respiratory: no symptoms reported Cardiovascular: no symptoms reported Gastrointestinal: no symptoms reported Genitourinary: see HPI : Yes Musculoskeletal: no symptoms reported Skin: no symptoms reported Psychiatric/Neurological: No Symptoms Reported Endocrine: No Symptoms Reported Hematologic/Lymphatic: No Symptoms Reported Past Abpjbqm-Qrcrmf-Oaysrm Hx Patient Social History Alcohol Use: Denies Use Recreational Drug Use: No Smoking Status: Former Smoker Type Used: Cigarettes 2nd Hand Smoke Exposure: No Recent Foreign Travel: No Contact w/Someone Who Travel: No Recent Infectious Disease Expo: No Recent Hopitalizations: No Physical Abuse: No Sexual Abuse: No Immunizations Up To Date Date of Influenza Vaccine: Sep 12, 2017 Seasonal Allergies Seasonal Allergies: Yes Past Medical History Surgeries: Yes (D&C X 1; WISDOM TEETH; X 3; LUMBAR PUNCTURE) Section, Gallbladder Respiratory: No Cardiac: No Neurological: Yes Female Reproductive Disorders: Denies Genitourinary: No Gastrointestinal: Yes (S/P JENN) Gall Bladder Disease Musculoskeletal: No Endocrine: No HEENT: No Cancer: No Psychosocial: No Nursing Suicide Risk Score: 0 Integumentary: Yes (INTERMITTENT RASHES) Blood Disorders: No Family Medical History Cancer (Maternal and paternal grandmother) Dysphagia (Sticklers syndrome- brother and sister) No Pertinent Family Hx Physical Exam Vital Signs Vital Signs - First Documented 06/06/18 17:16 Temp 96.5 Pulse 67 Resp 18 B/P (MAP) 122/85 (97) Pulse Ox 99 Capillary Refill : Less Than 3 Seconds Height, Weight, BMI Height: 5'2.00" Weight: 207lbs. 0oz. 93.450687ps; 33.28 BMI Method:Stated General Appearance: WD/WN, no apparent distress HEENT: normal ENT inspection Neck: full range of motion Cardiovascular: normal peripheral pulses, regular rate, rhythm, no edema, no gallop, no JVD, no murmur Respiratory: chest non-tender, lungs clear, normal breath sounds, no respiratory distress, no accessory muscle use, respiratory distress Gastrointestinal: normal bowel sounds, non tender, soft, no organomegaly, no pulsatile mass, abnormal bowel sounds Back: normal inspection Extremities: normal range of motion Neurologic/Psychiatric: emergency management program specialist II-XII nml as tested, no motor/sensory deficits, alert, normal mood/affect, oriented x 3 Skin: normal color, warm/dry Lymphatic: no adenopathy Progress/Results/Core Measures Suspected Sepsis Recent Fever Within 48 Hours: No Infection Criteria Present: None New/Unexplained Altered Menta: No Sepsis Screen: No Definite Risk SIRS Temperature:96.5 Pulse: 67 Respiratory Rate: 18 Blood Pressure 122 /85 Mean: 97 Results/Orders Lab Results Laboratory Tests Test 06/06/18 17:24 Range/Units Urine Color YELLOW Urine Clarity SLIGHTLY CLOUDY Urine pH 5 5-9 Urine Specific [place] 1.025 H 1.016-1.022 Urine Protein 1+ H NEGATIVE Urine Glucose (UA) NEGATIVE NEGATIVE Urine Ketones NEGATIVE NEGATIVE Urine Nitrite NEGATIVE NEGATIVE Urine Bilirubin NEGATIVE NEGATIVE Urine Urobilinogen NORMAL NORMAL MG/DL Urine Leukocyte Esterase 2+ H NEGATIVE Urine RBC (Auto) NEGATIVE NEGATIVE Urine RBC NONE /HPF Urine WBC 10-25 H /HPF Urine Squamous Epithelial Cells 10-25 H /HPF Urine Crystals NONE /LPF Urine Bacteria LARGE H /HPF Urine Casts NONE /LPF Urine Mucus MODERATE H /LPF Urine Culture Indicated YES My Orders Orders - MELISSA MARIE MD Ob Single Fetus<14 [id number] (06/06/18 17:32) Hcg,Quantitative (06/06/18 17:32) Vital Signs/I&O 06/06/18 17:16 Temp 96.5 Pulse 67 Resp 18 B/P (MAP) 122/85 (97) Pulse Ox 99 Capillary Refill : Less Than 3 Seconds Blood Pressure Mean: 97 Point of Care Testing Urine -Bedside: Positive Departure Communication (Admissions) The tech reports that the sonogram shows a very small subchorionic bleed. The patient was informed of this Impression Primary Impression: Threatened miscarriage in early Disposition: 01 HOME, SELF-CARE Condition: Stable/Unchanged Departure-Patient Inst. Decision time for Depature: 18:00 Referrals: [facility] [place] (PCP/Family) Primary Care Physician Add. Discharge Instructions: All discharge instructions reviewed with patient and/or family. Voiced understanding. Rest. If. Menstrual Like flow ensues is likely you are miscarrying. If there are further problems follow-up with your provider MELISSA MARIE MD Jun 06, 2018 17:36
[2018-06-06 17:42] LABS: BILIRUBIN,URINE NEGATIVE (NEGATIVE); CLARITY,URINE SLIGHTLY CLOUDY; COLOR,URINE YELLOW; GLUCOSE, URINE (UA) NEGATIVE (NEGATIVE); KETONES,URINE NEGATIVE (NEGATIVE); LEUKOCYTE ESTERASE ,URINE 2+ (NEGATIVE); NITRITE,URINE NEGATIVE (NEGATIVE); PH,URINE 5 (5-9); PROTEIN,URINE 1+ (NEGATIVE); UROBILINOGEN,URINE NORMAL (NORMAL)
[2018-06-06 17:55] LABS: BACTERIA,URINE LARGE /HPF
--- NOTE | 2018-06-06 17:57 | Diagnostic Imaging Report ---
PROCEDURE: US OB SINGLE FETUS <14 WKS. TECHNIQUE: Multiple real-time grayscale images were obtained over the gravid uterus in various projections. INDICATION: Early , cramping. COMPARISON: None. FINDINGS: Single live intrauterine is identified with a heart rate of 170 beats per minute. There is good decidual reaction and amniotic fluid volume. There is a small 28 x 4 mm subchorionic hemorrhage. The pole and yolk sac are otherwise unremarkable. The adnexa are normal bilaterally. The ovaries were not identified due to bowel gas. IMPRESSION: 1. Small subchorionic hemorrhage. 2. Single live intrauterine of 7 weeks 6 days with due date of 01/17/2019. Dictated by: Dictated on workstation # [id number]
[2018-06-06 18:11] VITALS: BP 122/85
== END 2018-06-06 18:13 | disposition home or self-care (01) ==
LOC: EDUNIT# 16:01 → ER 16:02
DX: O20.0 Threatened abortion (principal); Z3A.01 Less than 8 weeks gestation of pregnancy; Z87.59 Personal history of other complications of pregnancy, childbirth and the puerperium; Z87.891 Personal history of nicotine dependence; Z90.49 Acquired absence of other specified parts of digestive tract; Z87.448 Personal history of other diseases of urinary system
CPT/HCPCS: 36415; 76801; 81000; 84702; 84703; 87088

== ENCOUNTER 2018-06-12 19:49 | Emergency (ER) | payer MEDICAID ==
[~2018-06-12] VITALS: Ht 157.5 cm; Wt 93.9 kg
[2018-06-12 20:24] LABS: BILIRUBIN,URINE NEGATIVE (NEGATIVE); CLARITY,URINE SLIGHTLY CLOUDY; COLOR,URINE YELLOW; GLUCOSE, URINE (UA) NEGATIVE (NEGATIVE); KETONES,URINE NEGATIVE (NEGATIVE); LEUKOCYTE ESTERASE ,URINE 1+ (NEGATIVE); NITRITE,URINE NEGATIVE (NEGATIVE); PH,URINE 6 (5-9); PROTEIN,URINE 1+ (NEGATIVE); UROBILINOGEN,URINE 1 MG/DL (NORMAL)
[2018-06-12 20:31] LABS: AMORPHOUS SEDIMENT,UR MOD AMOR URATES /LPF; BACTERIA,URINE FEW /HPF
[2018-06-12] MEDS ORDERED: ACETAMINOPHEN 500 MG TAB (TYLENOL) PO STA (20:55)
[2018-06-12] MEDS ORDERED: RX-TRIMETH/SULFA. 160-800 MG (BACTRIM DS) TAB PPK#2 PO STA (21:35)
--- NOTE | 2018-06-12 21:35 | ED Abdominal Pain ---
General Chief Complaint: -Female Stated Complaint: 8W OB, TEAR IN BABYS SACK, PAIN GETTING WORSE Nursing Triage Note: PATIENT STATES THAT SHE IS HAVING WORSENING PAIN SINCE SHE WAS HERE LAST WEEK AND DIAGNOSED WITH A TEAR IN THE BABY'S SACK. SHE IS HAVING NO BLEEDING ANYMORE. Sepsis Screen: No Definite Risk History of Present Illness Date Seen by Provider: Jun 12, 2018 Time Seen by Provider: 20:15 Initial Comments 22-year-old female presents with abdominal pain, suprapubic. She is approximately 7 weeks gestation. She has not seen her OB doctor. She reports yesterday evening that she began having pain it persisted throughout the day today. She is scheduled to see her OB doctor in 2 days. She did not contact them regarding the pain today. She has taken Tylenol 500 mg 2 or 3 doses since the pain began. Her last dose was at 1500 today. She denies any vaginal discharge. She was evaluated approximately one week ago with labs including quantitative hCG of 143,303 and a normal OB ultrasound. Timing/Duration: Intermittent Severity/Quality: Mild Location: Suprapubic Radiation: No Radiation Associated Symptoms: Back Pain, Fatigue, Nausea/Vomiting; No Shortness of Air, No Syncope Allergies and Home Medications Allergies Coded Allergies: No Known Drug Allergies (Unverified , 05/09/13) Home Medications Nitrofurantoin Monohyd/M-Cryst 100 Mg Capsule, 100 MG PO BID Prescribed by: GORDO MONTEZ on 05/07/181936 Phenazopyridine HCl 200 Mg Tablet, 1 TAB PO TID Prescribed by: GORDO MONTEZ on 05/07/181936 Patient Home Medication List Home Medication List Reviewed: Yes Review of Systems Constitutional: no symptoms reported, see HPI Gastrointestinal: See HPI, Abdominal Pain; Denies Constipated, Denies Diarrhea ; Nausea; Denies Poor Appetite; Vomiting Genitourinary: See HPI; Denies Discharge All Other Systems Reviewed Negative Unless Noted: Yes Past Mvasadf-Zonjft-Mplxek Hx Past Med/Social Hx: Reviewed Nursing Past Med/Soc Hx Patient Social History Alcohol Use: Denies Use Recreational Drug Use: No Smoking Status: Former Smoker Type Used: Cigarettes 2nd Hand Smoke Exposure: No Recent Foreign Travel: No Contact w/Someone Who Travel: No Recent Infectious Disease Expo: No Recent Hopitalizations: No Physical Abuse: No Sexual Abuse: No Immunizations Up To Date Date of Influenza Vaccine: Sep 12, 2017 Seasonal Allergies Seasonal Allergies: Yes Past Medical History Surgeries: Yes (D&C X 1; WISDOM TEETH; X 3; LUMBAR PUNCTURE) Section, Gallbladder Respiratory: No Cardiac: No Neurological: Yes : Yes Female Reproductive Disorders: Denies Genitourinary: No Gastrointestinal: Yes (S/P JENN) Gall Bladder Disease Musculoskeletal: No Endocrine: No HEENT: No Cancer: No Psychosocial: No Nursing Suicide Risk Score: 0 Integumentary: Yes (INTERMITTENT RASHES) Blood Disorders: No Family Medical History Cancer (Maternal and paternal grandmother) Dysphagia (Sticklers syndrome- brother and sister) No Pertinent Family Hx Physical Exam Vital Signs Vital Signs - First Documented 06/12/18 20:10 Temp 98.1 Pulse 97 Resp 20 B/P (MAP) 103/72 (82) Pulse Ox 99 O2 Delivery Room Air Capillary Refill : Less Than 3 Seconds Height/Weight/BMI Height: 5'2.00" Weight: 207lbs. 0oz. 93.374354yc; 33.28 BMI Method:Stated General Appearance: WD/WN, no apparent distress Neck: non-tender, full range of motion, supple, normal inspection Respiratory: chest non-tender, lungs clear, normal breath sounds Cardiovascular: normal peripheral pulses, regular rate, rhythm Gastrointestinal: normal bowel sounds, soft, distended; No guarding, No rebound ; tenderness (suprapubic) Neurologic/Psychiatric: no motor/sensory deficits, alert, normal mood/affect, oriented x 3 Skin: normal color, warm/dry Progress/Results/Core Measures Results/Orders Lab Results Laboratory Tests Test 06/12/18 20:15 06/12/18 21:11 Range/Units Urine Color YELLOW Urine Clarity SLIGHTLY CLOUDY Urine pH 6 5-9 Urine Specific [place] 1.020 1.016-1.022 Urine Protein 1+ H NEGATIVE Urine Glucose (UA) NEGATIVE NEGATIVE Urine Ketones NEGATIVE NEGATIVE Urine Nitrite NEGATIVE NEGATIVE Urine Bilirubin NEGATIVE NEGATIVE Urine Urobilinogen 1 NORMAL MG/DL Urine Leukocyte Esterase 1+ H NEGATIVE Urine RBC (Auto) NEGATIVE NEGATIVE Urine RBC NONE /HPF Urine WBC 2-5 /HPF Urine Squamous Epithelial Cells 2-5 /HPF Urine Crystals PRESENT H /LPF Urine Amorphous Sediment MOD KIAN URATES H /LPF Urine Bacteria FEW H /HPF Urine Casts NONE /LPF Urine Mucus NEGATIVE /LPF Urine Culture Indicated NO Human Chorionic Gonadotropin, Quant [id number] H <5 MIU/ML My Orders Orders - OTTO IBARRA Urine Bedside (06/12/18 19:54) Ua Culture If Indicated (06/12/18 19:54) Hcg,Quantitative (06/12/18 20:55) Acetaminophen Tablet (Tylenol Tablet) (06/12/18 20:55) Rx-Trimeth/Sulfameth Ds Tab (Rx-Bactrim/ (06/12/18 21:35) Vital Signs/I&O 06/12/18 06/12/18 20:10 22:15 Temp 98.1 98.1 Pulse 97 97 Resp 20 20 B/P (MAP) 103/72 (82) 103/72 (82) Pulse Ox 99 99 O2 Delivery Room Air Blood Pressure Mean: 82 Urine -Bedside: Positive Progress Progress Note : Time: 20:15 Progress Note Initial evaluation completed, recommended UA and hCG. heart tones obtained 110-130. Will give Tylenol 1000 mg by mouth. 2044 urine hCG positive. Obtain a quantitative hCG. UA negative for urinary tract infection. Discussed findings with Dr. Montez, did not recommend any additional testing, but the patient had a normal ultrasound one week ago is not indicated to repeat at this time. Discussed the plan with the patient, she agreed with this. 2200 Quant HCG 139,365 which is decrease from last week. Discussed with patient , discharge instructions and return precautions reviewed encourage she follow- up with her OB doctor tomorrow. Departure Impression Primary Impression: First trimester Additional Impression: Abdominal pain Qualified Codes: R10.33 - Periumbilical pain Disposition: 01 HOME, SELF-CARE Condition: Improved Departure-Patient Inst. Referrals: KATE LARSON MD (PCP) Primary Care Physician [facility] (Family) Primary Care Physician Patient Instructions: Acute Abdomen (Belly Pain), Adult (DC) Add. Discharge Instructions: Increase water intake and empty bladder frequently. Continue taking your vitamin daily. Notify your OB doctor tomorrow if symptoms and asked for appointment tomorrow. Take Tylenol 650 mg every 4-6 hours as needed for pain. Return to emergency department for pain not relieved with Tylenol, vaginal bleeding or discharge, fever greater than 101, or new problems. All discharge instructions reviewed with patient and/or family. Voiced understanding. OTTO IBARRA Jun 12, 2018 21:34
[2018-06-12 22:15] VITALS: BP 103/72
== END 2018-06-12 22:15 | disposition home or self-care (01) ==
LOC: EDUNIT# 19:49 → ER 19:50
DX: O99.89 Other specified diseases and conditions complicating pregnancy, childbirth and the puerperium (principal); R10.30 Lower abdominal pain, unspecified; Z3A.08 8 weeks gestation of pregnancy; Z87.891 Personal history of nicotine dependence; Z87.59 Personal history of other complications of pregnancy, childbirth and the puerperium; Z87.448 Personal history of other diseases of urinary system; Z90.49 Acquired absence of other specified parts of digestive tract
CPT/HCPCS: 36415; 81000; 84702; 84703; 99282

== ENCOUNTER 2018-08-08 13:45 | Emergency (ER) | payer MEDICAID ==
[~2018-08-08] VITALS: Ht 157.5 cm; Wt 93.9 kg
[2018-08-08] MEDS ORDERED: PNV11TAB5 PO (15:24)
[2018-08-08] MEDS ORDERED: AMOX500T2 PO (15:24)
--- NOTE | 2018-08-08 15:26 | ED EENT ---
History of Present Illness General Chief Complaint: Nasal Problems Stated Complaint: 16 WKS ;SINUS INFECTION Nursing Triage Note: C/O SINUS CONGESTION TO CENTER OF HEAD. WORSE WHEN BENDING OVER. STATES SHE WAS PUT ON AMOX SINCE SUNDAY BUT FEELS THAT SHE DOESN'T FEEL BETTER. Source: patient Exam Limitations: no limitations History of Present Illness Date Seen by Provider: Aug 08, 2018 Time Seen by Provider: 15:22 Initial Comments Patient is a 22-year-old female who presents to the emergency room with complaints of sinus congestion, pain is worse when bending over, she is currently being treated by [facility] for a sinus infection and has been on amoxicillin for the past 4 days but has not had much relief. She denies fevers, nausea, vomiting. She is [address] Angel is her primary care provider. Associated Symptoms: cough; No fever; sinus infection; No sore throat, No voice change Allergies and Home Medications Allergies Coded Allergies: No Known Drug Allergies (Unverified , 05/09/13) Home Medications Amoxicillin 500 Mg Tablet, 500 MG PO BID, (Reported) Fluticasone Propionate 9.9 Ml [place].susp, 1 SPRAY NS DAILY 1 SPRAY EACH NARE DAILY Prescribed by: VIBHA KENNEDY on 08/08/18 1529 [id number]/FA/Omega3/Dha/Fish Oil 1 Each Tab.chew, 1 EACH PO DAILY, (Reported) Patient Home Medication List Home Medication List Reviewed: Yes Review of Systems Review of Systems Constitutional: see HPI; No chills Ears: See HPI, Other (pressure) Nose: see HPI, congestion : Yes Expected Date of Delivery: Jan 17, 2019 All Other Systems Reviewed Negative Unless Noted: Yes Past Fcfcird-Lhitym-Imqhtn Hx Past Med/Social Hx: Reviewed Nursing Past Med/Soc Hx Patient Social History Alcohol Use: Denies Use Recreational Drug Use: No Smoking Status: Former Smoker Type Used: Cigarettes Former Smoker, Quit: May 12, 2018 2nd Hand Smoke Exposure: No Recent Foreign Travel: No Contact w/Someone Who Travel: No Recent Infectious Disease Expo: No Recent Hopitalizations: No Physical Abuse: No Sexual Abuse: No Immunizations Up To Date Date of Influenza Vaccine: Sep 12, 2017 Seasonal Allergies Seasonal Allergies: Yes Past Medical History Surgeries: Yes (D&C X 1; WISDOM TEETH; X 3; LUMBAR PUNCTURE) Section, Gallbladder Respiratory: No Cardiac: No Neurological: No : Yes Expected Date of Delivery: Jan 17, 2019 Female Reproductive Disorders: Denies Genitourinary: No Gastrointestinal: Yes (S/P JENN) Gall Bladder Disease Musculoskeletal: No Endocrine: No HEENT: No Cancer: No Psychosocial: No Integumentary: Yes (INTERMITTENT RASHES) Blood Disorders: No Adverse Reaction/Blood Tranf: No Family Medical History Reviewed Nursing Family Hx Cancer (Maternal and paternal grandmother) Dysphagia (Sticklers syndrome- brother and sister) No Pertinent Family Hx Physical Exam Vital Signs Height, Weight, BMI Height: 5'2.00" Weight: 207lbs. 0oz. 93.168432zi; 33.28 BMI Method:Stated General Appearance: WD/WN, no apparent distress Eyes: bilateral eye normal inspection, bilateral eye PERRL, bilateral eye EOMI Ears: bilateral ear auricle normal, bilateral ear canal normal, bilateral ear TM normal Nose: normal inspection, other (sinus tenderness over frontal and maxillary sinus) Mouth/Throat: normal mouth inspection, pharynx normal Neck: non-tender, full range of motion, supple, normal inspection Cardiovascular: normal peripheral pulses, regular rate, rhythm, no edema, no gallop, no JVD, no murmur Respiratory: chest non-tender, lungs clear, normal breath sounds, no respiratory distress, no accessory muscle use Neurologic/Psychiatric: alert, normal mood/affect, oriented x 3 Skin: normal color, warm/dry Progress/Results/Core Measures Results/Orders My Orders Vital Signs/I&O Blood Pressure Mean: 104 Progress Progress Note : Time: 15:27 Progress Note I have seen and evaluated the patient. I have ordered a dose of Rocephin to help cover any other antimicrobials that amoxicillin might not. She agrees with plan of care, return precautions were given. Departure Impression Primary Impression: Sinusitis, acute frontal Disposition: 01 HOME, SELF-CARE Condition: Stable/Unchanged Departure-Patient Inst. Decision time for Depature: 15:27 Referrals: [facility] (PCP/Family) Primary Care Physician Patient Instructions: Sinusitis, Adult (DC) Add. Discharge Instructions: Continue your medications as previously prescribed. You may use ibuprofen as directed by the bottle for pain relief. Saline rinses such as a Sondra pot might be beneficial to aid in sinus drainage. Use the Flonase as directed. Follow up with [facility] within 1 week for recheck. Return back to the emergency room for any worsening symptoms or concerns as needed. All discharge instructions reviewed with patient and/or family. Voiced understanding. Scripts Fluticasone Propionate (Flonase Allergy Relief) 9.9 Ml [place].susp 1 SPRAY NS DAILY, #1 EACH 1 SPRAY EACH NARE DAILY Prov: VIBHA KENNEDY 08/08/18 VIBHA KENNEDY Aug 08, 2018 15:26
[2018-08-08] MEDS ORDERED: FLUT9.9S NS (15:29)
[2018-08-08] MEDS ORDERED: ACETAMINOPHEN 500 MG TAB (TYLENOL) PO ONE (15:30)
[2018-08-08] MEDS ORDERED: LIDOCAINE 1% INJ 20 ML 20 ML VIAL ONE (15:47)
[2018-08-08] MEDS ORDERED: cefTRIAXone 1 GM/10 ML for IV (ROCEPHIN) ONE (15:47)
[2018-08-08 16:32] VITALS: BP 0/0
[2018-08-09] MEDS ORDERED: cefTRIAXone 1,000 MG/2.86 ml vial (IM ONLY) IM SCH (09:00)
== END 2018-08-08 16:27 | disposition home or self-care (01) ==
LOC: EDUNIT# 13:45 → ER 13:46
DX: O99.512 Diseases of the respiratory system complicating pregnancy, second trimester (principal); J01.90 Acute sinusitis, unspecified; Z3A.17 17 weeks gestation of pregnancy; Z87.891 Personal history of nicotine dependence; Z98.890 Other specified postprocedural states; Z90.49 Acquired absence of other specified parts of digestive tract; Z87.448 Personal history of other diseases of urinary system
CPT/HCPCS: 99281

== ENCOUNTER → 2018-08-16 | Outpatient (CLI) | payer MEDICAID ==
[~2018-08-16] MED LIST changes: +AMOX500T2 PO; +FLUT9.9S NS; +PNV11TAB5 PO
--- NOTE | 2018-08-16 14:23 | Diagnostic Imaging Report ---
INDICATION: survey. TECHNIQUE: Multiple real-time grayscale images were obtained over the gravid uterus. COMPARISON: 06/06/2018. FINDINGS: There is a single live fetus in a cephalic presentation. heart rate was recorded at 142 beats per minute. Placenta is posterior. The amniotic fluid volume is normal. survey demonstrates a bladder and stomach to be unremarkable. The brain is unremarkable. There is a three-vessel cord with normal insertion. The four-chamber heart view and spine are not well visualized today. In addition, the kidneys are not as well visualized. A followup would be recommended. Biometrical measurements are as follows: Biparietal 3.97 cm, age 18 weeks 1 days. Head circumference 14.95 cm, age 18 weeks 1 days. Abdominal circumference 12.68 cm, age 18 weeks 2 days. Femur length 2.98 cm, age 19 weeks 2 days. Sonographic estimate age: 18 weeks 4 days. Sonographic estimated date of delivery: 01/13/19. Estimated Weight: 249 gm (+/- 36 gm). LMP percentile: 82%. heart rate: 142 beats per minute. number: 1 of 1. IMPRESSION: Single live IUP approximately 18 weeks 4 days gestational age showing normal interval growth when compared with prior exam. survey is unremarkable although kidneys, heart and spine are not well visualized perhaps owing to position. Followup is recommended. Dictated by: Dictated on workstation # [id number]
== END ==
LOC: RAD 09:29
PROVIDERS: ATTEND Family Medicine
DX: Z36.89 Encounter for other specified antenatal screening (principal); Z3A.18 18 weeks gestation of pregnancy
CPT/HCPCS: 76805